=== PATIENT | female | born 1940 | race African-American/Black ===

== ENCOUNTER 2016-06-03 11:48 | Inpatient (IN) | payer MEDICARE, OTHER ==
[~2016-06-03] VITALS: Ht 162.6 cm; Wt 118.6 kg
[~2016-06-03 11:48] MED LIST: ACET-706 PO; ATOR40TA59 PO; DIPH25CA58 PO; DIPH50CA PO; DOCU-27 PO; FLUT1DIS5 IH; FURO-68 PO; FURO40TA4 PO; KETO5DRO24 LEFTEYE; PANT40TA5 PO; PENT1TAB PO; PENT30AM PO; PROAIR HFA8.5 GM INH; PROM118S2 PO; TALWIN NX PO; TOBR5DRO13 OS; VALIUM10 MG PO; VENTOLIN HFA18 GM IH
[2016-06-03] MEDS ORDERED: METHYL SALICYLATE/MENTHOL TOPICAL OINTMENT 29GM TUBE. TP PRN (15:45)
[2016-06-03] MEDS ORDERED: OXYCODONE/APAP 10/325 TABLET. PO PRN (15:45)
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
[2016-06-03] MEDS ORDERED: FENTANYL PF 100 MCG/2 ML VIAL. IV PRN ×2 (16:00)
--- NOTE | 2016-06-03 17:15 | RAD ---
Lumbar spine, 3 views, 06/03/2016: History: Fall, low back pain The lumbar vertebral heights and disc spaces are well maintained. There are moderate scattered marginal spurs. There are moderate degenerative changes involving the facet joints bilaterally in the lower lumbar spine. No fracture or dislocation is identified. Aortic calcific plaquing is present. IMPRESSION: 1. Moderate hypertrophic degenerative change. 2. No acute bony abnormality is detected.
--- NOTE | 2016-06-03 17:17 | RAD ---
Thoracic spine, 3 views, 06/03/2016: History: Fall, pain The thoracic vertebral heights are well-maintained. There are moderate scattered marginal spurs. No fracture or dislocation is identified. IMPRESSION: 1. Moderate marginal spurring. 2. No acute thoracic spine abnormality is detected.
--- NOTE | 2016-06-03 17:19 | RAD ---
Cervical spine, 5 views, 06/03/2016: History: Fall, pain No fracture or dislocation is identified. There is moderate marginal spurring in the mid and lower cervical spine. There is mild disc space narrowing at C6-7. There are moderate degenerative changes involving scattered facet joints bilaterally. No prevertebral soft tissue swelling is seen. IMPRESSION: 1. Mild to moderate multilevel degenerative change. 2. No acute cervical spine abnormality is detected.
--- NOTE | 2016-06-03 17:22 | RAD ---
Bilateral shoulders, 6 views, 06/03/2016: History: Fall, pain No fracture or dislocation is identified. There is moderate degenerative change at both glenohumeral and acromioclavicular articulations. IMPRESSION: 1. Moderate degenerative change at both shoulders. 2. No acute bony abnormality is detected.
[2016-06-03 18:53] LABS: BASO # 0.1 x10^3/uL (0.0-0.2); BASO % 1 % (0-3); EOS % 2 % (0-3); HEMATOCRIT 48.6 % (36.0-47.0); HEMOGLOBIN 15.6 g/dL (12.0-15.5); LYMPH # 1.7 x10^3/uL (1.0-4.8); LYMPH % 32 % (24-48); MEAN CORPUSCULAR HEMOGLOBIN 28 pg (25-35); MEAN CORPUSCULAR HGB CONC 32 g/dL (31-37); MEAN CORPUSCULAR VOLUME 88 fL (79-100); MONO % 9 % (0-9); NEUT % 57 % (31-73); PLATELET COUNT 154 x10^3/uL (140-400); RED BLOOD COUNT 5.53 x10^6/uL (3.50-5.40); RED CELL DISTRIBUTION WIDTH 14.7 % (11.5-14.5); WHITE BLOOD COUNT 5.3 x10^3/uL (4.0-11.0)
[2016-06-03 19:00] VITALS: BP 134/59
[2016-06-03 19:09] LABS: ALBUMIN 3.3 g/dL (3.4-5.0); ALBUMIN/GLOBULIN RATIO 0.8 (1.0-1.7); CALCIUM 9.3 mg/dL (8.5-10.1); CREATININE 0.8 mg/dL (0.6-1.0); GFR 84.2; TOTAL BILIRUBIN 0.6 mg/dL (0.2-1.0); TOTAL PROTEIN 7.3 g/dL (6.4-8.2)
[2016-06-03] MEDS: METHOCARBAMOL 750 MG TABLET PO PRN (20:51)
[2016-06-03] MEDS: FENTANYL PF 100 MCG/2 ML VIAL. IV PRN (20:51)
[2016-06-03 23:00] VITALS: BP 121/69
[2016-06-04] MEDS: FENTANYL PF 100 MCG/2 ML VIAL. IV PRN ×5 (01:36→21:54)
[2016-06-04] MEDS: DIPHENHYDRAMINE HCL 25 MG CAPSULE PO PRN ×2 (01:37→13:43)
[2016-06-04 03:00] VITALS: BP 123/62
[2016-06-04 07:00] VITALS: BP 142/58
[2016-06-04] MEDS: FUROSEMIDE 40 MG TABLET PO SCH (09:13)
[2016-06-04] MEDS ORDERED: DIPHENHYDRAMINE HCL 25 MG CAPSULE PO PRN (10:15)
[2016-06-04] MEDS ORDERED: NON FORMULARY ITEM (Fluticasone/Salmeterol (Advair 500-50 Diskus) 1 PUFF) IH PRN (10:15)
--- NOTE | 2016-06-04 10:20 | PDOC ---
Provider Note Provider Note medical consult dictated. #[id number] JIM CASTRO MD Jun 04, 2016 10:20
[2016-06-04] MEDS ORDERED: DIAZEPAM 5 MG TABLET PO PRN (10:30)
[2016-06-04] MEDS ORDERED: ALBUTEROL SULFATE 2.5 MG/3 ML NEBU. NEB PRN (10:30)
[2016-06-04] MEDS ORDERED: ONDANSETRON PF 4 MG/2 ML VIAL. IV PRN (10:45)
[2016-06-04 10:52] VITALS: BP 155/69
[2016-06-04] MEDS ORDERED: ENOXAPARIN 40 MG/0.4 ML DISP.SYRIN. SQ SCH (12:00)
[2016-06-04] MEDS: ALBUTEROL SULFATE 2.5 MG/3 ML NEBU. NEB SCH ×3 (12:30→20:21)
[2016-06-04] MEDS: METHOCARBAMOL 750 MG TABLET PO PRN (13:34)
[2016-06-04] MEDS: PANTOPRAZOLE 40 MG TABLET. PO SCH (13:34)
[2016-06-04] MEDS: ENOXAPARIN 40 MG/0.4 ML DISP.SYRIN. SQ SCH (13:34)
[2016-06-04] MEDS: DOCUSATE SODIUM 100 MG CAPSULE PO SCH ×2 (13:34→21:54)
[2016-06-04] MEDS: KETOROLAC TROMETHAMINE 0.5% OPHTH SOLUTION 3ML BOTTLE. OS SCH ×2 (14:00→21:00)
[2016-06-04 15:00] VITALS: BP 147/71
--- NOTE | 2016-06-04 18:02 | PDOC ---
PROGRESS NOTES Subjective Subjective She continues with generalized pain. Objective Objective Vital Signs Date Time Temp Pulse Resp B/P Pulse Ox O2 Delivery O2 Flow Rate FiO2 06/04/16 17:16 Room Air 06/04/16 15:00 97.0 73 20 147/71 95 97.0 Intake and Output 06/04/16 07:00 Intake Total 200 ml Balance 200 ml Intake Oral 200 ml # Voids 2 Physical Exam Physical Exam She is alert sitting up in chair.She is working with physical and occupational therapy who recommends SNF transfer. Plan Plan of Care To transfer to SNF when arrangements are completed. Comment Review of Relevant I have reviewed the following items vinod (where applicable) has been applied. Labs Laboratory Tests Test 06/03/16 18:40 White Blood Count 5.3x10^3/uL (4.0-11.0) Red Blood Count 5.53x10^6/uL (3.50-5.40) Hemoglobin 15.6g/dL (12.0-15.5) Hematocrit 48.6% (36.0-47.0) Mean Corpuscular Volume 88fL (79-100) Mean Corpuscular Hemoglobin 28pg (25-35) Mean Corpuscular Hemoglobin Concent 32g/dL (31-37) Red Cell Distribution Width 14.7% (11.5-14.5) Platelet Count 154x10^3/uL (140-400) Neutrophils (%) (Auto) 57% (31-73) Lymphocytes (%) (Auto) 32% (24-48) Monocytes (%) (Auto) 9% (0-9) Eosinophils (%) (Auto) 2% (0-3) Basophils (%) (Auto) 1% (0-3) Neutrophils # (Auto) 3.0x10^3uL (1.8-7.7) Lymphocytes # (Auto) 1.7x10^3/uL (1.0-4.8) Monocytes # (Auto) 0.5x10^3/uL (0.0-1.1) Eosinophils # (Auto) 0.1x10^3/uL (0.0-0.7) Basophils # (Auto) 0.1x10^3/uL (0.0-0.2) Sodium Level 143mmol/L (136-145) Potassium Level 4.0mmol/L (3.5-5.1) Chloride Level 104mmol/L (98-107) Carbon Dioxide Level 32mmol/L (21-32) Anion Gap 7 (6-14) Blood Urea Nitrogen 11mg/dL (7-20) Creatinine 0.8mg/dL (0.6-1.0) Estimated GFR (Cockcroft-Gault) 84.2 BUN/Creatinine Ratio 14 (6-20) Glucose Level 151mg/dL (70-99) Calcium Level 9.3mg/dL (8.5-10.1) Total Bilirubin 0.6mg/dL (0.2-1.0) Aspartate Amino Transf (AST/SGOT) 24U/L (15-37) Alanine Aminotransferase (ALT/SGPT) 18U/L (14-59) Alkaline Phosphatase 167U/L (46-116) Total Protein 7.3g/dL (6.4-8.2) Albumin 3.3g/dL (3.4-5.0) Albumin/Globulin Ratio 0.8 (1.0-1.7) Laboratory Tests Test 06/03/16 18:40 White Blood Count 5.3x10^3/uL (4.0-11.0) Red Blood Count 5.53x10^6/uL (3.50-5.40) Hemoglobin 15.6g/dL (12.0-15.5) Hematocrit 48.6% (36.0-47.0) Mean Corpuscular Volume 88fL (79-100) Mean Corpuscular Hemoglobin 28pg (25-35) Mean Corpuscular Hemoglobin Concent 32g/dL (31-37) Red Cell Distribution Width 14.7% (11.5-14.5) Platelet Count 154x10^3/uL (140-400) Neutrophils (%) (Auto) 57% (31-73) Lymphocytes (%) (Auto) 32% (24-48) Monocytes (%) (Auto) 9% (0-9) Eosinophils (%) (Auto) 2% (0-3) Basophils (%) (Auto) 1% (0-3) Neutrophils # (Auto) 3.0x10^3uL (1.8-7.7) Lymphocytes # (Auto) 1.7x10^3/uL (1.0-4.8) Monocytes # (Auto) 0.5x10^3/uL (0.0-1.1) Eosinophils # (Auto) 0.1x10^3/uL (0.0-0.7) Basophils # (Auto) 0.1x10^3/uL (0.0-0.2) Sodium Level 143mmol/L (136-145) Potassium Level 4.0mmol/L (3.5-5.1) Chloride Level 104mmol/L (98-107) Carbon Dioxide Level 32mmol/L (21-32) Anion Gap 7 (6-14) Blood Urea Nitrogen 11mg/dL (7-20) Creatinine 0.8mg/dL (0.6-1.0) Estimated GFR (Cockcroft-Gault) 84.2 BUN/Creatinine Ratio 14 (6-20) Glucose Level 151mg/dL (70-99) Calcium Level 9.3mg/dL (8.5-10.1) Total Bilirubin 0.6mg/dL (0.2-1.0) Aspartate Amino Transf (AST/SGOT) 24U/L (15-37) Alanine Aminotransferase (ALT/SGPT) 18U/L (14-59) Alkaline Phosphatase 167U/L (46-116) Total Protein 7.3g/dL (6.4-8.2) Albumin 3.3g/dL (3.4-5.0) Albumin/Globulin Ratio 0.8 (1.0-1.7) Medications Current Medications Fentanyl Citrate (Fentanyl 2ml Vial) 100 mcg PRN 1X PRN IV BACK PAIN; Start at 16:00; Stop 06/03/16 at 16:00; Status DC Methocarbamol (Robaxin) 750 mg PRN Q6HRS PRN PO MUSCLE SPASMS Last administered on 06/04/16 13:34; Start 06/03/16 at 15:45 Oxycodone/ Acetaminophen (Percocet 10/325) 1 tab PRN Q4HRS PRN PO PAIN Last administered on 06/04/16 13:34; Start 06/03/16 at 15:45 Furosemide (Lasix) 40 mg DAILY PO Last administered on 06/04/16 09:13; Start 06/04/16 at 09:00 Diphenhydramine HCl (Benadryl) 50 mg PRN Q6HRS PRN PO ITCHING Last administered on 06/04/16 13:43; Start 06/03/16 at 15:45 Multi-Ingredient Ointment (Analgesic [place]) 1 mindi PRN QID PRN TP MUSCLE PAIN; Start 06/03/16 at 15:45 Fentanyl Citrate (Fentanyl 2ml Vial) 25 mcg PRN 1X PRN IV BACK PAIN Last administered on 06/03/16 17:49; Start 06/03/16 at 16:00; Stop 06/04/16 at 11:26 ; Status DC Fentanyl Citrate (Fentanyl 2ml Vial) 25 mcg PRN Q2HR PRN IV PAIN Last administered on 06/04/16 16:37; Start 06/03/16 at 20:45 Atorvastatin Calcium (Lipitor) 40 mg QHS PO ; Start 06/04/16 at 21:00 Diphenhydramine HCl (Benadryl) 25 mg PRN TID PRN PO IT; Start 06/04/16 at 10:15 Docusate Sodium (Colace) 100 mg BID PO Last administered on 06/04/16 13:34; Start 06/04/16 at 11:00 Ketorolac Tromethamine (Acular) 1 drop [id number] OS ; Start 06/04/16 at 14:00 Pantoprazole Sodium (Protonix) 40 mg DAILYAC PO Last administered on 06/04/16 13:34; Start 06/04/16 at 11:00 Albuterol Sulfate (Ventolin Neb Soln) 2.5 mg PRN Q4HRS PRN NEB SHORTNESS OF BREATH; Start 06/04/16 at 10:30 Diazepam (Valium) 5 mg PRN BID PRN PO ANXIETY / AGITATION; Start 06/04/16 at 10 :30 Non-Formulary Medication 1 puff BID PRN IH SHORTNESS OF BREATH; Start 06/04/16 at 10:15; Status UNV Albuterol Sulfate (Ventolin Neb Soln) 2.5 mg RTQID NEB Last administered on 16:51; Start 06/04/16 at 12:00 Budesonide (Pulmicort) 0.5 mg RTBID NEB ; Start 06/04/16 at 20:00 Ondansetron HCl (Zofran) 8 mg PRN Q8HRS PRN IV NAUSEA/VOMITING; Start 06/04/16 at 10:45 Enoxaparin Sodium (Lovenox 40mg Syringe) 40 mg Q12HR SQ ; Start 06/04/16 at 12: 00; Stop 06/04/16 at 12:00; Status DC Enoxaparin Sodium (Lovenox 40mg Syringe) 40 mg DAILY SQ Last administered on t 13:34; Start 06/04/16 at 12:00 Active Scripts Active Pantoprazole Sodium 40 Mg Tablet.dr 40 Mg PO DAILYAC Colace (Docusate Sodium) 100 Mg Capsule 100 Mg PO BID Atorvastatin Calcium 40 Mg Tablet 40 Mg PO QHS Reported Ketorolac Tromethamine 5 Ml Drops 1 Drop LEFTEYE [id number] Benadryl (Diphenhydramine Hcl) 25 Mg Capsule 2 Cap PO PRN 3-4XDAILY PRN Valium (Diazepam) 10 Mg Tablet 10 Mg PO PRN BID PRN Promethazine-Codeine Syrup (Promethazine Hcl/Codeine) 118 Ml Syrup 5 Ml PO Q4- 6HRS PRN Furosemide 40 Mg Tablet 1 Tab PO DAILY Talwin (Pentazocine Lactate) 30 Mg/1 Ml Ampul 50 Mg PO Q4HRS PRN Advair 500-50 Diskus (Fluticasone/Salmeterol) 1 Each Disk.w.dev 1 Puff IH BID PRN Ventolin Hfa Inhaler (Albuterol Sulfate) 18 Gm Hfa.aer.ad 2 Puff IH PRN Q4-6HRS Proair Hfa Inhaler (Albuterol Sulfate) 8.5 Gm Hfa.aer.ad 1 Puff INH PRN Q6HRS PRN Vitals/I & O Vital Sign - Last 24 Hours 06/03/16 06/03/16 06/03/16 06/03/16 18:47 19:00 19:02 23:00 Temp 97.7 97.8 97.7 97.8 Pulse 77 61 Resp 20 18 18 B/P 134/59 121/69 Pulse Ox 95 92 O2 Delivery Room Air Room Air Room Air Room Air 06/04/16 06/04/16 06/04/16 06/04/16 03:00 07:00 08:00 09:13 Temp 97.9 97.6 97.9 97.6 Pulse 73 75 Resp 18 18 B/P 123/62 142/58 Pulse Ox 91 96 O2 Delivery Room Air Room Air Room Air Room Air 06/04/16 06/04/16 06/04/16 06/04/16 10:52 12:30 13:34 15:00 Temp 97.1 97.0 97.1 97.0 Pulse 75 73 Resp 18 20 B/P 155/69 147/71 Pulse Ox 95 97 95 O2 Delivery Room Air Room Air Room Air Room Air 06/04/16 06/04/16 06/04/16 06/04/16 15:31 16:37 16:51 17:16 O2 Delivery Room Air Room Air Room Air Room Air Intake and Output 06/03/16 06/03/16 06/04/16 15:00 23:00 07:00 Intake Total 200 ml Balance 200 ml JARVIS ORTIZ MD Jun 04, 2016 18:02
[2016-06-04 19:15] VITALS: BP 100/56
[2016-06-04] MEDS: BUDESONIDE 0.5 MG/2 ML NEBU NEB SCH (20:21)
[2016-06-04] MEDS: ATORVASTATIN CALCIUM 40 MG TABLET. PO SCH (21:54)
[2016-06-04 23:10] VITALS: BP 133/57
[2016-06-05 03:45] VITALS: BP 116/61
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
[2016-06-05] MEDS: FENTANYL PF 100 MCG/2 ML VIAL. IV PRN ×3 (04:53→22:49)
[2016-06-05] MEDS: ALBUTEROL SULFATE 2.5 MG/3 ML NEBU. NEB SCH ×4 (07:24→19:49)
[2016-06-05] MEDS: BUDESONIDE 0.5 MG/2 ML NEBU NEB SCH ×2 (07:25→19:49)
[2016-06-05 08:10] VITALS: BP 138/62
[2016-06-05] MEDS: KETOROLAC TROMETHAMINE 0.5% OPHTH SOLUTION 3ML BOTTLE. OS SCH ×3 (08:35→21:00)
[2016-06-05] MEDS: PANTOPRAZOLE 40 MG TABLET. PO SCH (08:37)
[2016-06-05] MEDS: DOCUSATE SODIUM 100 MG CAPSULE PO SCH ×2 (08:37→22:48)
[2016-06-05] MEDS: FUROSEMIDE 40 MG TABLET PO SCH (08:38)
[2016-06-05] MEDS: ENOXAPARIN 40 MG/0.4 ML DISP.SYRIN. SQ SCH ×2 (08:38→22:50)
[2016-06-05 11:23] VITALS: BP 121/59
--- NOTE | 2016-06-05 11:41 | PDOC ---
PROGRESS NOTES Subjective Subjective She admits continued pain in her neck and back. Objective Objective Vital Signs Date Time Temp Pulse Resp B/P Pulse Ox O2 Delivery O2 Flow Rate FiO2 06/05/16 11:31 Room Air 06/05/16 11:23 97.7 87 16 121/59 98 2.0 97.7 Intake and Output 06/05/16 07:00 Intake Total 660 ml Balance 660 ml Intake Oral 660 ml # Voids 8 Physical Exam Physical Exam She is supine in bed and does not seem to be any any acute distress but continues to require help with her bed mobility and transfers. Plan Plan of Care To continue present physical and occupational therapy and to SNF if she agrees or home with home health follow up on 06/07/2016. Comment Review of Relevant I have reviewed the following items vinod (where applicable) has been applied. Labs Laboratory Tests Test 06/03/16 18:40 White Blood Count 5.3x10^3/uL (4.0-11.0) Red Blood Count 5.53x10^6/uL (3.50-5.40) Hemoglobin 15.6g/dL (12.0-15.5) Hematocrit 48.6% (36.0-47.0) Mean Corpuscular Volume 88fL (79-100) Mean Corpuscular Hemoglobin 28pg (25-35) Mean Corpuscular Hemoglobin Concent 32g/dL (31-37) Red Cell Distribution Width 14.7% (11.5-14.5) Platelet Count 154x10^3/uL (140-400) Neutrophils (%) (Auto) 57% (31-73) Lymphocytes (%) (Auto) 32% (24-48) Monocytes (%) (Auto) 9% (0-9) Eosinophils (%) (Auto) 2% (0-3) Basophils (%) (Auto) 1% (0-3) Neutrophils # (Auto) 3.0x10^3uL (1.8-7.7) Lymphocytes # (Auto) 1.7x10^3/uL (1.0-4.8) Monocytes # (Auto) 0.5x10^3/uL (0.0-1.1) Eosinophils # (Auto) 0.1x10^3/uL (0.0-0.7) Basophils # (Auto) 0.1x10^3/uL (0.0-0.2) Sodium Level 143mmol/L (136-145) Potassium Level 4.0mmol/L (3.5-5.1) Chloride Level 104mmol/L (98-107) Carbon Dioxide Level 32mmol/L (21-32) Anion Gap 7 (6-14) Blood Urea Nitrogen 11mg/dL (7-20) Creatinine 0.8mg/dL (0.6-1.0) Estimated GFR (Cockcroft-Gault) 84.2 BUN/Creatinine Ratio 14 (6-20) Glucose Level 151mg/dL (70-99) Calcium Level 9.3mg/dL (8.5-10.1) Total Bilirubin 0.6mg/dL (0.2-1.0) Aspartate Amino Transf (AST/SGOT) 24U/L (15-37) Alanine Aminotransferase (ALT/SGPT) 18U/L (14-59) Alkaline Phosphatase 167U/L (46-116) Total Protein 7.3g/dL (6.4-8.2) Albumin 3.3g/dL (3.4-5.0) Albumin/Globulin Ratio 0.8 (1.0-1.7) Medications Current Medications Fentanyl Citrate (Fentanyl 2ml Vial) 100 mcg PRN 1X PRN IV BACK PAIN; Start at 16:00; Stop 06/03/16 at 16:00; Status DC Methocarbamol (Robaxin) 750 mg PRN Q6HRS PRN PO MUSCLE SPASMS Last administered on 06/04/16 13:34; Start 06/03/16 at 15:45 Oxycodone/ Acetaminophen (Percocet 10/325) 1 tab PRN Q4HRS PRN PO PAIN Last administered on 06/04/16 13:34; Start 06/03/16 at 15:45 Furosemide (Lasix) 40 mg DAILY PO Last administered on 06/04/16 09:13; Start 06/04/16 at 09:00 Diphenhydramine HCl (Benadryl) 50 mg PRN Q6HRS PRN PO ITCHING Last administered on 06/04/16 13:43; Start 06/03/16 at 15:45 Multi-Ingredient Ointment (Analgesic [place]) 1 mindi PRN QID PRN TP MUSCLE PAIN; Start 06/03/16 at 15:45 Fentanyl Citrate (Fentanyl 2ml Vial) 25 mcg PRN 1X PRN IV BACK PAIN Last administered on 06/03/16 17:49; Start 06/03/16 at 16:00; Stop 06/04/16 at 11:26 ; Status DC Fentanyl Citrate (Fentanyl 2ml Vial) 25 mcg PRN Q2HR PRN IV PAIN Last administered on 06/05/16 08:39; Start 06/03/16 at 20:45 Atorvastatin Calcium (Lipitor) 40 mg QHS PO Last administered on 06/04/16 21: 54; Start 06/04/16 at 21:00 Diphenhydramine HCl (Benadryl) 25 mg PRN TID PRN PO IT; Start 06/04/16 at 10:15 Docusate Sodium (Colace) 100 mg BID PO Last administered on 06/05/16 08:37; Start 06/04/16 at 11:00 Ketorolac Tromethamine (Acular) 1 drop [id number] OS ; Start 06/04/16 at 14:00 Pantoprazole Sodium (Protonix) 40 mg DAILYAC PO Last administered on 06/05/16 08:37; Start 06/04/16 at 11:00 Albuterol Sulfate (Ventolin Neb Soln) 2.5 mg PRN Q4HRS PRN NEB SHORTNESS OF BREATH; Start 06/04/16 at 10:30 Diazepam (Valium) 5 mg PRN BID PRN PO ANXIETY / AGITATION; Start 06/04/16 at 10 :30 Non-Formulary Medication 1 puff BID PRN IH SHORTNESS OF BREATH; Start 06/04/16 at 10:15; Status UNV Albuterol Sulfate (Ventolin Neb Soln) 2.5 mg RTQID NEB Last administered on 11:30; Start 06/04/16 at 12:00 Budesonide (Pulmicort) 0.5 mg RTBID NEB Last administered on 06/05/16 07:25; Start 06/04/16 at 20:00 Ondansetron HCl (Zofran) 8 mg PRN Q8HRS PRN IV NAUSEA/VOMITING; Start 06/04/16 at 10:45 Enoxaparin Sodium (Lovenox 40mg Syringe) 40 mg Q12HR SQ ; Start 06/04/16 at 12: 00; Stop 06/04/16 at 12:00; Status DC Enoxaparin Sodium (Lovenox 40mg Syringe) 40 mg DAILY SQ Last administered on t 08:38; Start 06/04/16 at 12:00 Active Scripts Active Pantoprazole Sodium 40 Mg Tablet.dr 40 Mg PO DAILYAC Colace (Docusate Sodium) 100 Mg Capsule 100 Mg PO BID Atorvastatin Calcium 40 Mg Tablet 40 Mg PO QHS Reported Ketorolac Tromethamine 5 Ml Drops 1 Drop LEFTEYE [id number] Benadryl (Diphenhydramine Hcl) 25 Mg Capsule 2 Cap PO PRN 3-4XDAILY PRN Valium (Diazepam) 10 Mg Tablet 10 Mg PO PRN BID PRN Promethazine-Codeine Syrup (Promethazine Hcl/Codeine) 118 Ml Syrup 5 Ml PO Q4- 6HRS PRN Furosemide 40 Mg Tablet 1 Tab PO DAILY Talwin (Pentazocine Lactate) 30 Mg/1 Ml Ampul 50 Mg PO Q4HRS PRN Advair 500-50 Diskus (Fluticasone/Salmeterol) 1 Each Disk.w.dev 1 Puff IH BID PRN Ventolin Hfa Inhaler (Albuterol Sulfate) 18 Gm Hfa.aer.ad 2 Puff IH PRN Q4-6HRS Proair Hfa Inhaler (Albuterol Sulfate) 8.5 Gm Hfa.aer.ad 1 Puff INH PRN Q6HRS PRN Vitals/I & O Vital Sign - Last 24 Hours 06/04/16 06/04/16 06/04/16 06/04/16 12:30 13:34 15:00 15:31 Temp 97.0 97.0 Pulse 73 Resp 20 B/P 147/71 Pulse Ox 97 95 O2 Delivery Room Air Room Air Room Air Room Air 06/04/16 06/04/16 06/04/16 06/04/16 16:37 16:51 19:15 20:00 Temp 98.2 98.2 Pulse 81 Resp 18 B/P 100/56 Pulse Ox 91 O2 Delivery Room Air Room Air Room Air Room Air 2/24/17 2/24/17 2/24/17 2/25/17 20:24 21:54 23:10 03:45 Temp 97.6 98.2 97.6 98.2 Pulse 87 85 Resp 18 18 18 B/P 133/57 116/61 Pulse Ox 96 94 95 O2 Delivery Room Air Room Air Room Air Room Air 06/05/16 06/05/16 06/05/16 06/05/16 04:53 07:26 08:10 08:39 Temp 98.5 98.5 Pulse 85 Resp 18 20 B/P 138/62 Pulse Ox 100 100 O2 Delivery Room Air Nasal Cannula Room Air Nasal Cannula O2 Flow Rate 2.0 2.0 06/05/16 06/05/16 06/05/16 09:42 11:23 11:31 Temp 97.7 97.7 Pulse 87 Resp 16 B/P 121/59 Pulse Ox 98 O2 Delivery Nasal Cannula Nasal Cannula Room Air O2 Flow Rate 2.0 2.0 Intake and Output 06/04/16 06/04/16 06/05/16 15:00 23:00 07:00 Intake Total 180 ml 480 ml Balance 180 ml 480 ml JARVIS ORTIZ MD Jun 05, 2016 11:41
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
[2016-06-05] MEDS ORDERED: FUROSEMIDE 40 MG TABLET PO SCH (12:30)
[2016-06-05 14:30] VITALS: BP 116/68
[2016-06-05] MEDS: TRAMADOL 50 MG TABLET. PO PRN (14:33)
[2016-06-05] MEDS: MORPHINE ER 15 MG TABLET.ER PO SCH ×2 (14:34→22:49)
[2016-06-05] MEDS: POLYETHYLENE GLYCOL 3350 17 GM PACKET. PO SCH (14:34)
[2016-06-05] MEDS: SENNOSIDES/DOCUSATE 8.6/50MG TABLET. PO SCH ×2 (14:34→22:48)
[2016-06-05 19:00] VITALS: BP 142/70
[2016-06-05] MEDS: ATORVASTATIN CALCIUM 40 MG TABLET. PO SCH (22:48)
[2016-06-05 23:00] VITALS: BP 137/83
[2016-06-06] VITALS (7 sets, daily range): BP systolic 88–146; BP diastolic 63–79
[2016-06-06] MEDS: FENTANYL PF 100 MCG/2 ML VIAL. IV PRN ×2 (03:22→20:34)
[2016-06-06] MEDS: BUDESONIDE 0.5 MG/2 ML NEBU NEB SCH ×2 (07:05→18:00)
[2016-06-06] MEDS: ALBUTEROL SULFATE 2.5 MG/3 ML NEBU. NEB SCH ×4 (07:06→18:02)
[2016-06-06] MEDS: PANTOPRAZOLE 40 MG TABLET. PO SCH (08:55)
[2016-06-06] MEDS: MORPHINE ER 15 MG TABLET.ER PO SCH ×2 (08:55→21:00)
[2016-06-06] MEDS: DOCUSATE SODIUM 100 MG CAPSULE PO SCH ×2 (08:55→20:33)
[2016-06-06] MEDS: KETOROLAC TROMETHAMINE 0.5% OPHTH SOLUTION 3ML BOTTLE. OS SCH ×3 (08:56→21:00)
[2016-06-06] MEDS: POLYETHYLENE GLYCOL 3350 17 GM PACKET. PO SCH (08:56)
[2016-06-06] MEDS: FUROSEMIDE 40 MG TABLET PO SCH (08:56)
[2016-06-06] MEDS: SENNOSIDES/DOCUSATE 8.6/50MG TABLET. PO SCH ×2 (08:56→20:33)
[2016-06-06] MEDS: ENOXAPARIN 40 MG/0.4 ML DISP.SYRIN. SQ SCH ×2 (08:57→20:34)
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
[2016-06-06] MEDS: ATORVASTATIN CALCIUM 40 MG TABLET. PO SCH (20:33)
[2016-06-07] MEDS: DIPHENHYDRAMINE HCL 25 MG CAPSULE PO PRN (02:50)
[2016-06-07 03:00] VITALS: BP 145/71
[2016-06-07 07:00] VITALS: BP 124/62
[2016-06-07] MEDS: ALBUTEROL SULFATE 2.5 MG/3 ML NEBU. NEB SCH ×4 (07:17→20:08)
[2016-06-07] MEDS: BUDESONIDE 0.5 MG/2 ML NEBU NEB SCH ×2 (07:17→20:09)
[2016-06-07] MEDS: FUROSEMIDE 40 MG TABLET PO SCH (08:23)
[2016-06-07] MEDS: SENNOSIDES/DOCUSATE 8.6/50MG TABLET. PO SCH ×2 (08:23→21:46)
[2016-06-07] MEDS: POLYETHYLENE GLYCOL 3350 17 GM PACKET. PO SCH (08:23)
[2016-06-07] MEDS: PANTOPRAZOLE 40 MG TABLET. PO SCH (08:23)
[2016-06-07] MEDS: DOCUSATE SODIUM 100 MG CAPSULE PO SCH ×2 (08:23→21:46)
[2016-06-07] MEDS: TRAMADOL 50 MG TABLET. PO PRN (08:23)
[2016-06-07] MEDS: ENOXAPARIN 40 MG/0.4 ML DISP.SYRIN. SQ SCH ×2 (08:24→21:47)
[2016-06-07] MEDS: KETOROLAC TROMETHAMINE 0.5% OPHTH SOLUTION 3ML BOTTLE. OS SCH ×3 (08:25→21:56)
[2016-06-07] MEDS: MORPHINE ER 15 MG TABLET.ER PO SCH ×2 (08:27→21:46)
--- NOTE | 2016-06-07 09:49 | PDOC ---
PROGRESS NOTES Subjective Subjective She feels better with easing of soreness. Objective Objective Vital Signs Date Time Temp Pulse Resp B/P Pulse Ox O2 Delivery O2 Flow Rate FiO2 06/07/16 08:27 Nasal Cannula 2.0 06/07/16 07:17 98 06/07/16 07:00 98.0 94 14 124/62 98.0 Intake and Output 06/07/16 07:00 # Voids 11 Physical Exam Physical Exam She is sitting up in bedside recliner and seems to be in no acute distress and she is using oxygen by nasal canula.She continues to require help with transfers. Plan Plan of Care She would like to go home tomorrow when her personal care attendent returns to [facility] rather than going to SNF. Comment Review of Relevant I have reviewed the following items vinod (where applicable) has been applied. Medications Current Medications Fentanyl Citrate (Fentanyl 2ml Vial) 100 mcg PRN 1X PRN IV BACK PAIN; Start at 16:00; Stop 06/03/16 at 16:00; Status DC Methocarbamol (Robaxin) 750 mg PRN Q6HRS PRN PO MUSCLE SPASMS Last administered on 06/04/16 13:34; Start 06/03/16 at 15:45 Oxycodone/ Acetaminophen (Percocet 10/325) 1 tab PRN Q4HRS PRN PO PAIN Last administered on 06/04/16 13:34; Start 06/03/16 at 15:45 Furosemide (Lasix) 40 mg DAILY PO Last administered on 06/07/16 08:23; Start 06/04/16 at 09:00 Diphenhydramine HCl (Benadryl) 50 mg PRN Q6HRS PRN PO ITCHING Last administered on 06/07/16 02:50; Start 06/03/16 at 15:45 Multi-Ingredient Ointment (Analgesic [place]) 1 mindi PRN QID PRN TP MUSCLE PAIN; Start 06/03/16 at 15:45 Fentanyl Citrate (Fentanyl 2ml Vial) 25 mcg PRN 1X PRN IV BACK PAIN Last administered on 06/03/16 17:49; Start 06/03/16 at 16:00; Stop 06/04/16 at 11:26 ; Status DC Fentanyl Citrate (Fentanyl 2ml Vial) 25 mcg PRN Q2HR PRN IV PAIN Last administered on 06/06/16 20:34; Start 06/03/16 at 20:45 Atorvastatin Calcium (Lipitor) 40 mg QHS PO Last administered on 06/06/16 20: 33; Start 06/04/16 at 21:00 Diphenhydramine HCl (Benadryl) 25 mg PRN TID PRN PO IT; Start 06/04/16 at 10:15 Docusate Sodium (Colace) 100 mg BID PO Last administered on 06/07/16 08:23; Start 06/04/16 at 11:00 Ketorolac Tromethamine (Acular) 1 drop [id number] OS Last administered on 21:00; Start 06/04/16 at 14:00 Pantoprazole Sodium (Protonix) 40 mg DAILYAC PO Last administered on 06/07/16 08:23; Start 06/04/16 at 11:00 Albuterol Sulfate (Ventolin Neb Soln) 2.5 mg PRN Q4HRS PRN NEB SHORTNESS OF BREATH; Start 06/04/16 at 10:30 Diazepam (Valium) 5 mg PRN BID PRN PO ANXIETY / AGITATION Last administered on 06/07/16 02:50; Start 06/04/16 at 10:30 Non-Formulary Medication 1 puff BID PRN IH SHORTNESS OF BREATH; Start 06/04/16 at 10:15; Status UNV Albuterol Sulfate (Ventolin Neb Soln) 2.5 mg RTQID NEB Last administered on 07:17; Start 06/04/16 at 12:00 Budesonide (Pulmicort) 0.5 mg RTBID NEB Last administered on 06/07/16 07:17; Start 06/04/16 at 20:00 Ondansetron HCl (Zofran) 8 mg PRN Q8HRS PRN IV NAUSEA/VOMITING; Start 06/04/16 at 10:45 Enoxaparin Sodium (Lovenox 40mg Syringe) 40 mg Q12HR SQ ; Start 06/04/16 at 12: 00; Stop 06/04/16 at 12:00; Status DC Enoxaparin Sodium (Lovenox 40mg Syringe) 40 mg DAILY SQ Last administered on 08:38; Start 06/04/16 at 12:00; Stop 06/05/16 at 16:26; Status DC Furosemide (Lasix) 40 mg DAILY PO ; Start 06/05/16 at 12:30; Stop 06/05/16 at 12 :30; Status DC Polyethylene Glycol (miraLAX PACKET) 17 gm DAILY PO Last administered on 08:23; Start 06/05/16 at 13:00 Senna/Docusate Sodium (Senna Plus) 1 tab BID PO Last administered on 06/07/16 08:23; Start 06/05/16 at 13:00 Morphine Sulfate (Ms Contin) 15 mg BID PO Last administered on 06/07/16 08:27 ; Start 06/05/16 at 13:00 Tramadol HCl (Ultram) 100 mg PRN Q6HRS PRN PO PAIN Last administered on 08:23; Start 06/05/16 at 12:00 Enoxaparin Sodium (Lovenox 40mg Syringe) 40 mg Q12HR SQ Last administered on 08:24; Start 06/05/16 at 21:00 Active Scripts Active Pantoprazole Sodium 40 Mg Tablet.dr 40 Mg PO DAILYAC Colace (Docusate Sodium) 100 Mg Capsule 100 Mg PO BID Atorvastatin Calcium 40 Mg Tablet 40 Mg PO QHS Reported Ketorolac Tromethamine 5 Ml Drops 1 Drop LEFTEYE [id number] Benadryl (Diphenhydramine Hcl) 25 Mg Capsule 2 Cap PO PRN 3-4XDAILY PRN Valium (Diazepam) 10 Mg Tablet 10 Mg PO PRN BID PRN Promethazine-Codeine Syrup (Promethazine Hcl/Codeine) 118 Ml Syrup 5 Ml PO Q4- 6HRS PRN Furosemide 40 Mg Tablet 1 Tab PO DAILY Talwin (Pentazocine Lactate) 30 Mg/1 Ml Ampul 50 Mg PO Q4HRS PRN Advair 500-50 Diskus (Fluticasone/Salmeterol) 1 Each Disk.w.dev 1 Puff IH BID PRN Ventolin Hfa Inhaler (Albuterol Sulfate) 18 Gm Hfa.aer.ad 2 Puff IH PRN Q4-6HRS Proair Hfa Inhaler (Albuterol Sulfate) 8.5 Gm Hfa.aer.ad 1 Puff INH PRN Q6HRS PRN Vitals/I & O Vital Sign - Last 24 Hours 06/06/16 06/06/16 06/06/16 06/06/16 11:00 11:04 13:56 15:00 Temp 98.0 98.2 98.0 98.2 Pulse 87 96 Resp 16 16 B/P 139/63 131/77 Pulse Ox 96 98 96 O2 Delivery Nasal Cannula Nasal Cannula Nasal Cannula Nasal Cannula O2 Flow Rate 2.0 2.0 2.0 2.0 06/06/16 06/06/16 06/06/16 06/06/16 15:09 18:02 19:00 20:00 Temp 98.7 98.7 Pulse 114 Resp 18 B/P 88/64 Pulse Ox 86 98 O2 Delivery Nasal Cannula Nasal Cannula Nasal Cannula Nasal Cannula O2 Flow Rate 2.0 2.0 2.0 2.0 06/06/16 06/06/16 06/06/16 06/06/16 20:00 20:34 21:04 23:00 Temp 99.0 99.0 Pulse 100 Resp 20 20 18 B/P 140/75 133/67 Pulse Ox 86 97 O2 Delivery Nasal Cannula Nasal Cannula Nasal Cannula O2 Flow Rate 2.0 2.0 06/07/16 06/07/16 06/07/16 06/07/16 03:00 07:00 07:17 08:23 Temp 98.4 98.0 98.4 98.0 Pulse 107 94 Resp 18 14 B/P 145/71 124/62 Pulse Ox 94 94 98 O2 Delivery Nasal Cannula Nasal Cannula Nasal Cannula Nasal Cannula O2 Flow Rate 2.0 2.0 2.0 2.0 06/07/16 08:27 O2 Delivery Nasal Cannula O2 Flow Rate 2.0 JARVIS ORTIZ MD Jun 07, 2016 09:49
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
[2016-06-07 11:00] VITALS: BP 121/67
[2016-06-07] MEDS: METHOCARBAMOL 750 MG TABLET PO PRN (12:07)
--- NOTE | 2016-06-07 12:18 | PDOC ---
Provider Note Provider Note dictated RUSLAN JASSO MD Jun 07, 2016 12:18
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
[2016-06-07 15:00] VITALS: BP 154/60
--- NOTE | 2016-06-07 15:08 | RAD ---
CT of the chest without contrast, 06/07/2016: History: Follow-up sarcoidosis Noncontrast scans were obtained as requested and compared to a study from 05/01/2014. The images are partially compromised by motion and streak artifacts related to the patient's size. There is calcific plaquing of the aorta without evidence of aneurysm. The heart is within normal limits in size. There are calcified mediastinal and hilar lymph nodes. No noncalcified adenopathy is seen. There are streaky and groundglass opacities in both lungs similar to those seen on the previous study. This results in mosaic attenuation. The stability of these findings suggests scarring. No new pulmonary consolidation or mass is seen. There is no evidence of pleural fluid. Moderate multilevel degenerative change is present in the spine. IMPRESSION: 1. Moderate linear and groundglass opacities in both lungs appear stable, compatible with fibrosis. 2. No new chest abnormality is detected. PQRS Compliance Statement: One or more of the following individualized dose reduction techniques were utilized for this examination: 1. Automated exposure control 2. Adjustment of the mA and/or kV according to patient size 3. Use of iterative reconstruction technique
--- NOTE | 2016-06-07 15:21 | RAD ---
Portable chest, 06/07/2016: History: Sleep apnea, sarcoidosis Comparison is made to a study from 10/17/2015. The heart is at the upper limits of normal in size. There is calcific plaquing of the aorta. There are mild scattered parenchymal scars. No acute infiltrate is seen. There is no evidence of pleural fluid. Moderate spurring is present in the spine. IMPRESSION: 1. Mild parenchymal scarring. 2. No acute abnormality is detected with no significant change since 10/17/2015.
[2016-06-07 19:25] VITALS: BP 157/76
[2016-06-07] MEDS: ATORVASTATIN CALCIUM 40 MG TABLET. PO SCH (21:46)
[2016-06-07 23:25] VITALS: BP 136/68
[2016-06-08 03:25] VITALS: BP 134/64
[2016-06-08 07:00] VITALS: BP 124/61
[2016-06-08] MEDS: PANTOPRAZOLE 40 MG TABLET. PO SCH (07:52)
[2016-06-08] MEDS: ALBUTEROL SULFATE 2.5 MG/3 ML NEBU. NEB SCH ×4 (08:04→18:46)
[2016-06-08] MEDS: BUDESONIDE 0.5 MG/2 ML NEBU NEB SCH ×2 (08:04→18:46)
[2016-06-08] MEDS: SENNOSIDES/DOCUSATE 8.6/50MG TABLET. PO SCH ×2 (09:15→20:26)
[2016-06-08] MEDS: DOCUSATE SODIUM 100 MG CAPSULE PO SCH ×2 (09:15→20:26)
[2016-06-08] MEDS: FUROSEMIDE 40 MG TABLET PO SCH (09:15)
[2016-06-08] MEDS: POLYETHYLENE GLYCOL 3350 17 GM PACKET. PO SCH (09:16)
[2016-06-08] MEDS: MORPHINE ER 15 MG TABLET.ER PO SCH (09:16)
[2016-06-08] MEDS: ENOXAPARIN 40 MG/0.4 ML DISP.SYRIN. SQ SCH ×2 (09:20→20:27)
--- NOTE | 2016-06-08 09:54 | PDOC ---
PULMONARY PROGRESS NOTES Vitals Vital Signs Date Time Temp Pulse Resp B/P Pulse Ox O2 Delivery O2 Flow Rate FiO2 06/08/16 09:16 Nasal Cannula 06/08/16 08:04 98 2.0 06/08/16 07:00 97.6 90 16 124/61 97.6 General: Alert, Oriented X4, No acute distress Lungs: Clear, Other Cardiovascular: S1 Abdomen: Soft, Other Extremities: Other Medications Active Scripts Medications Dose Route/Sig Days Date Category Pantoprazole Sodium 40 Mg Tablet.dr 40 Mg PO DAILYAC 10/19/15 Rx Colace (Docusate Sodium) 100 Mg Capsule 100 Mg PO BID 10/19/15 Rx Atorvastatin Calcium 40 Mg Tablet 40 Mg PO QHS 10/19/15 Rx Ketorolac Tromethamine 5 Ml Drops 1 Drop LEFTEYE [id number] 10/18/15 Reported Benadryl (Diphenhydramine Hcl) 25 Mg Capsule 2 Cap PO PRN 3-4XDAILY PRN 10/17/15 Reported Valium (Diazepam) 10 Mg Tablet 10 Mg PO PRN BID PRN 10/17/15 Reported Promethazine-Codeine Syrup (Promethazine Hcl/Codeine) 118 Ml Syrup 5 Ml PO Q4-6HRS PRN 06/16/15 Reported Furosemide 40 Mg Tablet 1 Tab PO DAILY 06/16/15 Reported Talwin (Pentazocine Lactate) 30 Mg/1 Ml Ampul 50 Mg PO Q4HRS PRN 06/16/15 Reported Advair 500-50 Diskus (Fluticasone/Salmeterol) 1 Each Disk.w.dev 1 Puff IH BID PRN 04/25/14 Reported Ventolin Hfa Inhaler (Albuterol Sulfate) 18 Gm Hfa.aer.ad 2 Puff IH PRN Q4-6HRS 04/25/14 Reported Proair Hfa Inhaler (Albuterol Sulfate) 8.5 Gm Hfa.aer.ad 1 Puff INH PRN Q6HRS PRN 04/24/14 Reported MARY CLARK MD Jun 08, 2016 09:54
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
[2016-06-08 11:00] VITALS: BP 134/77
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
[2016-06-08 15:00] VITALS: BP 129/73
[2016-06-08 19:00] VITALS: BP 118/56
[2016-06-08] MEDS: ATORVASTATIN CALCIUM 40 MG TABLET. PO SCH (20:26)
[2016-06-08] MEDS: METHOCARBAMOL 750 MG TABLET PO PRN (20:35)
[2016-06-08] MEDS ORDERED: FENTANYL PF 100 MCG/2 ML VIAL. IM ONE (22:45)
[2016-06-08 23:00] VITALS: BP 126/63
[2016-06-09] MEDS: METHOCARBAMOL 750 MG TABLET PO PRN (02:34)
[2016-06-09 03:00] VITALS: BP 123/69
[2016-06-09 07:00] VITALS: BP 150/62
[2016-06-09] MEDS: BUDESONIDE 0.5 MG/2 ML NEBU NEB SCH (07:04)
[2016-06-09] MEDS: ALBUTEROL SULFATE 2.5 MG/3 ML NEBU. NEB SCH ×3 (07:04→14:51)
[2016-06-09] MEDS: PANTOPRAZOLE 40 MG TABLET. PO SCH (07:39)
[2016-06-09] MEDS: SENNOSIDES/DOCUSATE 8.6/50MG TABLET. PO SCH (08:33)
[2016-06-09] MEDS: FUROSEMIDE 40 MG TABLET PO SCH (08:34)
[2016-06-09] MEDS: POLYETHYLENE GLYCOL 3350 17 GM PACKET. PO SCH (08:34)
[2016-06-09] MEDS: DOCUSATE SODIUM 100 MG CAPSULE PO SCH (08:34)
[2016-06-09] MEDS: ENOXAPARIN 40 MG/0.4 ML DISP.SYRIN. SQ SCH (08:38)
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
--- NOTE | 2016-06-09 10:02 | PDOC ---
PULMONARY PROGRESS NOTES Subjective PT NOT MORE SOA Vitals Vital Signs Date Time Temp Pulse Resp B/P Pulse Ox O2 Delivery O2 Flow Rate FiO2 06/09/16 07:05 98 Nasal Cannula 2.0 06/09/16 07:00 97.9 83 16 150/62 97.9 General: Alert, No acute distress Lungs: Wheezing (UPPER AIRWAY NOISE), Other Cardiovascular: S1 Abdomen: Soft, Other Neuro Exam: Alert Extremities: No Edema Skin: Warm Medications Active Scripts Medications Dose Route/Sig Days Date Category Pantoprazole Sodium 40 Mg Tablet.dr 40 Mg PO DAILYAC 10/19/15 Rx Colace (Docusate Sodium) 100 Mg Capsule 100 Mg PO BID 10/19/15 Rx Atorvastatin Calcium 40 Mg Tablet 40 Mg PO QHS 10/19/15 Rx Ketorolac Tromethamine 5 Ml Drops 1 Drop LEFTEYE [id number] 10/18/15 Reported Benadryl (Diphenhydramine Hcl) 25 Mg Capsule 2 Cap PO PRN 3-4XDAILY PRN 10/17/15 Reported Valium (Diazepam) 10 Mg Tablet 10 Mg PO PRN BID PRN 10/17/15 Reported Promethazine-Codeine Syrup (Promethazine Hcl/Codeine) 118 Ml Syrup 5 Ml PO Q4-6HRS PRN 06/16/15 Reported Furosemide 40 Mg Tablet 1 Tab PO DAILY 06/16/15 Reported Talwin (Pentazocine Lactate) 30 Mg/1 Ml Ampul 50 Mg PO Q4HRS PRN 06/16/15 Reported Advair 500-50 Diskus (Fluticasone/Salmeterol) 1 Each Disk.w.dev 1 Puff IH BID PRN 04/25/14 Reported Ventolin Hfa Inhaler (Albuterol Sulfate) 18 Gm Hfa.aer.ad 2 Puff IH PRN Q4-6HRS 04/25/14 Reported Proair Hfa Inhaler (Albuterol Sulfate) 8.5 Gm Hfa.aer.ad 1 Puff INH PRN Q6HRS PRN 04/24/14 Reported Impression . 1. History of sarcoidosis diagnosed 28 years ago by skin biopsy from her nose and questionable bronchial biopsy. 2. Underlying morbid obesity. 3. Possible mild reactive airway disease. 4. Suspect vocal cord dysfunction CT CHEST 1. Moderate linear and groundglass opacities in both lungs appear stable, compatible with fibrosis. 2. No new chest abnormality is detected. Plan . ok to transfer no further work up 1. CT no new findings see report 2. Continue present oxygen. 3. Continue with present bronchodilators. MARY CLARK MD Jun 09, 2016 10:02
--- NOTE | 2016-06-09 10:03 | PDOC ---
PROGRESS NOTES Subjective Subjective She admits continued pain and constipation. Objective Objective Vital Signs Date Time Temp Pulse Resp B/P Pulse Ox O2 Delivery O2 Flow Rate FiO2 06/09/16 07:05 98 Nasal Cannula 2.0 06/09/16 07:00 97.9 83 16 150/62 97.9 Intake and Output 06/09/16 07:00 Intake Total 1595 ml Balance 1595 ml Intake Oral 1595 ml # Voids 10 Physical Exam Physical Exam She is alert,sitting in bedside chair and does not seem to be in any acute distress and continues with mobility and self care limitations. Assessment Assessment Problems Medical Problems: (1) Multiple falls Status: Acute (2) Sarcoidosis Status: Acute Plan Plan of Care Waiting for SNF transfer.To work on constipation. Comment Review of Relevant I have reviewed the following items vinod (where applicable) has been applied. Medications Current Medications Fentanyl Citrate (Fentanyl 2ml Vial) 100 mcg PRN 1X PRN IV BACK PAIN; Start at 16:00; Stop 06/03/16 at 16:00; Status DC Methocarbamol (Robaxin) 750 mg PRN Q6HRS PRN PO MUSCLE SPASMS Last administered on 06/09/16 02:34; Start 06/03/16 at 15:45 Oxycodone/ Acetaminophen (Percocet 10/325) 1 tab PRN Q4HRS PRN PO BREAKTHROUGH PAIN Last administered on 06/04/16 13:34; Start 06/03/16 at 15:45 Furosemide (Lasix) 40 mg DAILY PO Last administered on 06/09/16 08:34; Start at 09:00 Diphenhydramine HCl (Benadryl) 50 mg PRN Q6HRS PRN PO ITCHING Last administered on 06/07/16 02:50; Start 06/03/16 at 15:45; Stop 06/07/16 at 10:04 ; Status DC Multi-Ingredient Ointment (Analgesic [place]) 1 mindi PRN QID PRN TP MUSCLE PAIN; Start 06/03/16 at 15:45 Fentanyl Citrate (Fentanyl 2ml Vial) 25 mcg PRN 1X PRN IV BACK PAIN Last administered on 06/03/16 17:49; Start 06/03/16 at 16:00; Stop 06/04/16 at 11:26 ; Status DC Fentanyl Citrate (Fentanyl 2ml Vial) 25 mcg PRN Q2HR PRN IV PAIN Last administered on 06/06/16 20:34; Start 06/03/16 at 20:45; Stop 06/07/16 at 10:04 ; Status DC Atorvastatin Calcium (Lipitor) 40 mg QHS PO Last administered on 06/08/16 20: 26; Start 06/04/16 at 21:00 Diphenhydramine HCl (Benadryl) 25 mg PRN TID PRN PO IT Last administered on 06/09 02:34; Start 06/04/16 at 10:15 Docusate Sodium (Colace) 100 mg BID PO Last administered on 06/09/16 08:34; Start 06/04/16 at 11:00 Ketorolac Tromethamine (Acular) 1 drop [id number] OS Last administered on 21:00; Start 06/04/16 at 14:00; Stop 06/08/16 at 00:48; Status DC Pantoprazole Sodium (Protonix) 40 mg DAILYAC PO Last administered on 06/09/16 07:39; Start 06/04/16 at 11:00 Albuterol Sulfate (Ventolin Neb Soln) 2.5 mg PRN Q4HRS PRN NEB SHORTNESS OF BREATH; Start 06/04/16 at 10:30 Diazepam (Valium) 5 mg PRN BID PRN PO ANXIETY / AGITATION Last administered on 06/07/16 02:50; Start 06/04/16 at 10:30 Non-Formulary Medication 1 puff BID PRN IH SHORTNESS OF BREATH; Start 06/04/16 at 10:15; Status UNV Albuterol Sulfate (Ventolin Neb Soln) 2.5 mg RTQID NEB Last administered on 06/09 07:04; Start 06/04/16 at 12:00 Budesonide (Pulmicort) 0.5 mg RTBID NEB Last administered on 06/09/16 07:04; Start 06/04/16 at 20:00 Ondansetron HCl (Zofran) 8 mg PRN Q8HRS PRN IV NAUSEA/VOMITING; Start 06/04/16 at 10:45 Enoxaparin Sodium (Lovenox 40mg Syringe) 40 mg Q12HR SQ ; Start 06/04/16 at 12: 00; Stop 06/04/16 at 12:00; Status DC Enoxaparin Sodium (Lovenox 40mg Syringe) 40 mg DAILY SQ Last administered on 08:38; Start 06/04/16 at 12:00; Stop 06/05/16 at 16:26; Status DC Furosemide (Lasix) 40 mg DAILY PO ; Start 06/05/16 at 12:30; Stop 06/05/16 at 12 :30; Status DC Polyethylene Glycol (miraLAX PACKET) 17 gm DAILY PO Last administered on 08:34; Start 06/05/16 at 13:00 Senna/Docusate Sodium (Senna Plus) 1 tab BID PO Last administered on 06/09/16 08:33; Start 06/05/16 at 13:00 Morphine Sulfate (Ms Contin) 15 mg BID PO Last administered on 06/08/16 09:16 ; Start 06/05/16 at 13:00; Stop 06/08/16 at 09:59; Status DC Tramadol HCl (Ultram) 100 mg PRN Q6HRS PRN PO PAIN Last administered on 08:23; Start 06/05/16 at 12:00; Stop 06/07/16 at 10:04; Status DC Enoxaparin Sodium (Lovenox 40mg Syringe) 40 mg Q12HR SQ Last administered on 08:38; Start 06/05/16 at 21:00 Fentanyl Citrate (Fentanyl 2ml Vial) 50 mcg 1X ONCE IM ; Start 06/08/16 at 22: 45; Stop 06/08/16 at 22:46; Status DC Active Scripts Active Pantoprazole Sodium 40 Mg Tablet.dr 40 Mg PO DAILYAC Colace (Docusate Sodium) 100 Mg Capsule 100 Mg PO BID Atorvastatin Calcium 40 Mg Tablet 40 Mg PO QHS Reported Ketorolac Tromethamine 5 Ml Drops 1 Drop LEFTEYE [id number] Benadryl (Diphenhydramine Hcl) 25 Mg Capsule 2 Cap PO PRN 3-4XDAILY PRN Valium (Diazepam) 10 Mg Tablet 10 Mg PO PRN BID PRN Promethazine-Codeine Syrup (Promethazine Hcl/Codeine) 118 Ml Syrup 5 Ml PO Q4- 6HRS PRN Furosemide 40 Mg Tablet 1 Tab PO DAILY Talwin (Pentazocine Lactate) 30 Mg/1 Ml Ampul 50 Mg PO Q4HRS PRN Advair 500-50 Diskus (Fluticasone/Salmeterol) 1 Each Disk.w.dev 1 Puff IH BID PRN Ventolin Hfa Inhaler (Albuterol Sulfate) 18 Gm Hfa.aer.ad 2 Puff IH PRN Q4-6HRS Proair Hfa Inhaler (Albuterol Sulfate) 8.5 Gm Hfa.aer.ad 1 Puff INH PRN Q6HRS PRN Vitals/I & O Vital Sign - Last 24 Hours 06/08/16 06/08/16 06/08/16 06/08/16 11:00 11:50 15:00 15:01 Temp 97.8 97.6 97.8 97.6 Pulse 86 83 Resp 16 18 B/P 134/77 129/73 Pulse Ox 99 100 98 O2 Delivery Nasal Cannula Nasal Cannula Nasal Cannula Nasal Cannula O2 Flow Rate 2.0 2.0 2.0 2.0 06/08/16 06/08/16 06/08/16 06/08/16 18:46 18:47 19:00 19:25 Temp 98.1 98.1 Pulse 94 Resp 18 B/P 118/56 Pulse Ox 98 98 96 O2 Delivery Nasal Cannula Nasal Cannula Nasal Cannula Nasal Cannula O2 Flow Rate 2.0 2.0 2.0 2.0 06/08/16 06/09/16 06/09/16 06/09/16 23:00 03:00 07:00 07:05 Temp 98.2 98.1 97.9 98.2 98.1 97.9 Pulse 88 90 83 Resp 18 18 16 B/P 126/63 123/69 150/62 Pulse Ox 97 98 94 98 O2 Delivery Nasal Cannula Nasal Cannula Nasal Cannula Nasal Cannula O2 Flow Rate 2.0 2.0 2.0 2.0 Intake and Output 06/08/16 06/08/16 06/09/16 15:00 23:00 07:00 Intake Total 275 ml 1200 ml 120 ml Balance 275 ml 1200 ml 120 ml JARVIS ORTIZ MD Jun 09, 2016 10:03
[2016-06-09] MEDS ORDERED: DOCUSATE SODIUM 283 MG/5 ML ENEMA. PR PRN (10:15)
[2016-06-09 11:00] VITALS: BP 140/73
[2016-06-09] MEDS ORDERED: MAGNESIUM CITRATE 296 ML SOLUTION. PO ONE (11:00)
[2016-06-09] MEDS ORDERED: MORPHINE ER 15 MG TABLET.ER PO SCH (11:00)
--- NOTE | 2016-06-09 11:10 | RAD ---
Indication abdominal pain. Supine films of the abdomen were obtained. No recent plain film imaging of the abdomen is available. The abdominal gas pattern appears unremarkable. There are some degenerative changes in the visualized spine. Degenerative changes are seen involving the hips. There does not appear to be an inordinate amount of stool within the large bowel. No organomegaly or abnormal calculi are seen. IMPRESSION: No acute or significant finding seen on KUB
[2016-06-09] MEDS ORDERED: BISACODYL 5 MG TABLET.DR. PO PRN (11:30)
[2016-06-09 14:54] VITALS: BP 124/64
== END 2016-06-09 15:39 | DRG 552 ==
LOC: 4 NORTH 13:40
PROVIDERS: ADMIT Physical Medicine & Rehabilitation; ATTEND Physical Medicine & Rehabilitation
DX: S13.4XXA Sprain of ligaments of cervical spine, initial encounter (principal); Z68.41 Body mass index [BMI] 40.0-44.9, adult; D86.9 Sarcoidosis, unspecified; S23.3XXA Sprain of ligaments of thoracic spine, initial encounter; M50.30 Other cervical disc degeneration, unspecified cervical region; M51.36 Other intervertebral disc degeneration, lumbar region; E66.01 Morbid (severe) obesity due to excess calories; F41.9 Anxiety disorder, unspecified; G89.29 Other chronic pain; J45.909 Unspecified asthma, uncomplicated; K59.00 Constipation, unspecified; M19.90 Unspecified osteoarthritis, unspecified site; M25.70 Osteophyte, unspecified joint; M47.812 Spondylosis without myelopathy or radiculopathy, cervical region; M47.816 Spondylosis without myelopathy or radiculopathy, lumbar region; R29.6 Repeated falls; Z82.49 Family history of ischemic heart disease and other diseases of the circulatory system; Z88.0 Allergy status to penicillin; Z88.8 Allergy status to other drugs, medicaments and biological substances; Z88.1 Allergy status to other antibiotic agents; Z91.041 Radiographic dye allergy status
CPT/HCPCS: 36415; 71010; 71250; 72050; 72072; 72100; 73030; 74000; 80053; 85027; 94250; 94640; 94760; J1650; J3010; Q0163; 97110; 97116; 97530; 97535

== ENCOUNTER 2017-07-05 10:08 | Emergency (ER) | payer MEDICARE, OTHER | END 2017-07-05 11:52 | disposition home or self-care (01) | LOC: ER 10:08 | DX: Z76.0 Encounter for issue of repeat prescription (principal); D86.9 Sarcoidosis, unspecified; Z91.041 Radiographic dye allergy status; Z88.0 Allergy status to penicillin; Z88.8 Allergy status to other drugs, medicaments and biological substances; Z88.1 Allergy status to other antibiotic agents; Z91.011 Allergy to milk products; Z96.659 Presence of unspecified artificial knee joint | CPT/HCPCS: 99283 ==

== ENCOUNTER → 2020-02-22 | Outpatient (CLI) | payer MEDICARE, OTHER ==
[2017-07-05 10:15] VITALS: BP 141/70
[~2020-02-22] MED LIST changes: +ALBU2.5V8 INH; +BUPIVACAINE MPF 0.5% 10 ML VIAL. INT ART ONE; +DIPH50CA17 PO; +DOCU-109 PO; -DOCU-27 PO; +GUAI118L20 PO; +LIDOCAINE 1% Multi-Dose 20 ML VIAL. ID ONE; +OXYC1TAB22 PO; -PANT40TA5 PO; +PANT40TA77 PO; -PROAIR HFA8.5 GM INH; -PROM118S2 PO; +PROM118S5 PO; +methylPREDNISolone ACETATE 40 MG/ML VIAL. INT ART ONE
--- NOTE | 2020-02-22 17:12 | KCIC ---
Bilateral knees 3 views each INDICATION: Bilateral knee pain. History of total knee replacements TECHNIQUE: AP, oblique and lateral views of the right and left knees were obtained. FINDINGS: Right knee shows a total knee arthroplasty in anatomic alignment with no fracture or aggressive appearing osseous lesions. No periprosthetic lucency is present. The bones are demineralized. The lateral view shows narrowing of the patellofemoral compartment with no joint effusion or evidence of a loose body. There is a well-circumscribed ossific density within the distal aspect of the quadriceps tendon. Soft tissues otherwise are unremarkable. Left knee also demonstrates a total knee arthroplasty in anatomic alignment with small ossific density projecting over the joint space on the lateral view. No significant joint effusion is seen. No periprosthetic lucency is identified. Soft tissues are otherwise unremarkable. IMPRESSION: Bilateral total knee arthroplasties and osteopenia but no fracture, malalignment or aggressive osseous lesions seen. Possible loose body in the left knee joint space. Electronically signed by: Scott Dudley MD (02/22/2020 5:09 PM) [id number]
--- NOTE | 2020-02-22 17:45 | KCIC ---
FLUOROSCOPICALLY GUIDED BILATERAL SHOULDER THERAPEUTIC INJECTIONS 1. INDICATION: The patient is a 79 years old Female who presented with bilateral shoulder pain. 2. CONSENT: The risks, benefits, treatment options, potential complications and personnel to be involved were discussed (including the risks of radiation exposure, instruments to be used, contrast and anesthesia administration) with the patient. All questions were answered and consent was obtained. The patient indicated willingness to proceed. 3. GENERAL: a) Medication Reconciliation: The patient's medications and allergies were reviewed in the electronic medical record and reconciled to the proposed procedure/treatment. b) Positioning: The patient was placed Supine on the fluoroscopy table. c) The left followed by the right shoulder was then sterilely prepped and draped. d) Time Out: A time out was performed immediately prior to procedure start with the nursing, anesthesia and interventional team, correctly identifying the patient name, date of , procedure, anatomy (including marking of site and side), patient position, procedure consent form, relevant diagnostic and radiology test results, antibiotic administration, safety precautions, and procedure-specific equipment needs. Procedure Start Time / Timeout Time: 14:04 e) Anesthesia Type: Local anesthesia: 2 mL 1% Lidocaine on the left, 2 mL 1% Lidocaine on the right 4. PROCEDURE: a) Procedure Details: A 20g spinal needle was inserted into the left shoulder joint. A small amount of air was injected to confirm intra-articular placement of needle. Air was observed to flow into the intra-articular space of the joint without significant resistance. 6 mL of injectate was administered into the left glenohumeral joint . The needle was removed. Images were stored to the permanent digital archive documenting needle position. Attention was then turned to the right shoulder where the same process was repeated with a 20-gauge spinal needle utilizing a small amount of air to confirm intra-articular needle placement and 6 mL of injectate was administered into the right glenohumeral joint. The needle was removed. Images were stored to the permanent digital archive documenting needle position. b) Injectate Contents: LEFT: 2 mL Methylprednisolone (Depo Medrol) 40mg/ml 4 mL Bupivacaine (Marcaine, Sensorcaine) RIGHT: 2 mL Methylprednisolone (Depo Medrol) 40mg/ml 4 mL Bupivacaine (Marcaine, Sensorcaine) c) Estimated Blood Loss: 0 mL RADIATION DOSE: Fluoroscopic Radiation Summary: Fluoro time: 00:13 (min:sec) on the left, 00:13 (min:sec) on the right POST PROCEDURE: a) Hemostasis: Hemostasis was achieved using light manual compression. b) Procedure End Time: 14:25 c) Conclusion: The patient was discharged from the radiology department in stable condition. COMPLICATIONS: a) Significant Patient Complication: None If other, explain: b) Complications during the procedure: None If other, explain: 5. RESULTS: Medication was injected into the joints. 6. IMPRESSION: SUCCESSFUL FLUOROSCOPICALLY GUIDED THERAPEUTIC INJECTION OF THE BILATERAL SHOULDERS DESCRIBED ABOVE. Electronically signed by: Dano Miguel DO (02/22/2020 5:42 PM) [id number]
== END | disposition home or self-care (01) ==
LOC: KCIC 13:03
PROVIDERS: ATTEND Physical Medicine & Rehabilitation
DX: M19.012 Primary osteoarthritis, left shoulder (principal); M19.011 Primary osteoarthritis, right shoulder; M25.562 Pain in left knee; M25.561 Pain in right knee; M85.88 Other specified disorders of bone density and structure, other site; F41.9 Anxiety disorder, unspecified; F32.9 Major depressive disorder, single episode, unspecified; Z96.653 Presence of artificial knee joint, bilateral; Z98.51 Tubal ligation status; Z98.890 Other specified postprocedural states; Z79.899 Other long term (current) drug therapy; Z88.0 Allergy status to penicillin; Z88.1 Allergy status to other antibiotic agents; Z91.041 Radiographic dye allergy status; Z91.011 Allergy to milk products; Z88.8 Allergy status to other drugs, medicaments and biological substances
CPT/HCPCS: 20610; 73562; 77002; J1030; J3490

== ENCOUNTER → 2020-05-08 | Outpatient (CLI) | payer MEDICARE, OTHER ==
[2017-07-05 10:15] VITALS: BP 141/70
--- NOTE | 2020-05-08 15:47 | KCIC ---
ADDENDUM #1 Addendum: 1 fluoroscopic image saved on the right and 1 fluoroscopic image saved on the left. Electronically signed by: Kristopher Mcintyre DO (06/02/2020 2:03 PM) [id number] ORIGINAL REPORT IR ARTHROCENTESIS ASP/INJ BILAT History: Pain Technique: Patient was informed of the risks to include pain, infection, bleeding, allergic reaction. All questions were answered. Patient signed a written consent form for bilateral injection for pain therapy. Patient was placed in supine position on the fluoroscopy table. The external skin site overlying righ t was prepped and draped in the usual sterile fashion. Betadine was utilized for cleansing solution. 1% lidocaine was utilized for local anesthesia to the depth of the bone. 22-gauge spinal needle was a dvanced under fluoroscopy to depth of the bone. Air was injected to confirm intra-articular location. Mixture of 4 cc bupivacaine and 80 mg Depo-Medrol were injected during fluoroscopic visualization. N eedle was removed. There were no immediate complications. Bandage was applied. Similar technique was performed on the left shoulder with injection of a mixture of 4 cc bupivacaine and 80 mg Depo-Medrol were injected during fluoroscopic visualization. There is no complications. Ban dage was applied. Fluoroscopy time 47 seconds on the right and 41 seconds volume left. Impression: 1. Successful bilateral steroid injection. Electronically signed by: Kristopher Mcintyre DO (05/08/2020 3:45 PM) [id number]
== END | disposition home or self-care (01) ==
LOC: KCIC 10:07
PROVIDERS: ATTEND Physical Medicine & Rehabilitation
DX: M25.512 Pain in left shoulder (principal); M25.511 Pain in right shoulder; M19.90 Unspecified osteoarthritis, unspecified site; F32.9 Major depressive disorder, single episode, unspecified; F41.9 Anxiety disorder, unspecified; Z98.51 Tubal ligation status; Z98.890 Other specified postprocedural states; Z79.899 Other long term (current) drug therapy; Z88.0 Allergy status to penicillin; Z88.1 Allergy status to other antibiotic agents; Z88.8 Allergy status to other drugs, medicaments and biological substances
CPT/HCPCS: 20610; 77002; J1030; J3490

== ENCOUNTER 2020-05-30 08:52 | Emergency (ER) | payer MEDICARE, OTHER ==
[~2020-05-30] VITALS: Ht 160 cm; Wt 250.0 kg
[~2020-05-30 08:52] MED LIST changes: -BUPIVACAINE MPF 0.5% 10 ML VIAL. INT ART ONE; -LIDOCAINE 1% Multi-Dose 20 ML VIAL. ID ONE; -methylPREDNISolone ACETATE 40 MG/ML VIAL. INT ART ONE
--- NOTE | 2020-05-30 09:35 | RAD ---
XR CHEST 1V 05/30/2020 9:19 AM INDICATION: Left-sided weakness COMPARISON: June 07, 2016 TECHNIQUE: Portable frontal view of the chest is provided. FINDINGS: The cardiomediastinal silhouette is within normal limits. Stable bilateral hilar prominence, right gr eater than left. This may represent vascular prominence versus lymphadenopathy. Mild chronic intersti tial changes are noted. There are no significant pleural effusions. There is no pulmonary vascular congestion. No pneumothora x. No suspicious osseous abnormality. IMPRESSION: Chronic interstitial changes with hilar prominence, right greater than left. No new airspace consolid ation. Electronically signed by: Kristen Tomlinson MD (05/30/2020 9:33 AM) [id number]
--- NOTE | 2020-05-30 09:37 | RAD ---
EXAM: CT Head without IV contrast INDICATION: Reason: left sided weakness / Spl. Instructions: / History: TECHNIQUE: Multi-detector row CT images were obtained of the head without the use of IV contrast. All CT scans performed at this facility utilize dose optimization techniques as appropriate to the exam, including the following: Automated exposure control and adjustment of the mA and/or KV according to patient size (this includes techniques or standardized protocols for targeted exams where dose is ind ication/reason for exam). COMPARISON: None FINDINGS: BRAIN PARENCHYMA: No evidence of acute intraparenchymal hemorrhage or infarct. No abnormal parenchyma l density or mass. VENTRICLES & EXTRA-AXIAL SPACES: Ventricles are within normal limits. Basilar cisterns are patent. N o pathologic extra-axial fluid collection or mass. ORBITS: Orbital contents are unremarkable. SINUSES: Visualized paranasal sinuses and mastoid air cells are clear. OSSEOUS & SOFT TISSUES: Calvarium and skull base are intact. IMPRESSION: No acute intracranial pathology. FOR INTERNAL CODING PURPOSES Critical result: Findings discussed with Dr. Elier Barrow at 05/30/2020 9:35 AM. RESULT CODE: (C) Electronically signed by: Scott Dudley MD (05/30/2020 9:35 AM) [id number]
--- NOTE | 2020-05-30 09:38 | PHYS DOC ---
Past Medical History Past Medical History: Anemia, Other Additional Past Medical Histor: sarcoidosis Past Surgical History: Knee Replacement Additional Past Surgical Histo: unknown Smoking Status: Never Smoker Alcohol Use: None Drug Use: None General Adult EDM: Chief Complaint: Left sided weakness HPI: HPI: 79-year-old female presenting the emergency department today with left-sided weakness. She was found at her home today on the ground and noted to have left- sided weakness with facial drooping. She was last known well at 4 PM on May 29. This is when she was last seen is normal. She has twitching on her left upper extremity and left face but is able to answer questions including being able to respond that the year is 2020. She has slurred speech. She is not on any blood thinners. I spoke with the patient's family member Pascual Liriano to obtain more information. She had talked to the pt at 7pm and reports that the patient seemed like she had been on her medication with abnormal speech. She reports that this is intermittantly baseline for the patient as she is on strong pain medications. When she takes these medications she typically has this abnormal speech pattern. It is abnormal for the patient to have the weakness on the left side of her upper and lower extremity. Review of systems negative for chest pain shortness of breath abdominal pain vomiting fevers chills. All other review of systems negative. ED course: 79-year-old female presenting with strokelike symptoms. Patient is outside of TPA window. Last known well greater than 5 hours. Last known well was 4 PM. I do not feel comfortable with last known well at 7 PM because the patient speech abnormalities. In either case, last known well is greater than 5 hours. Unfortunately, because the patient is allergic to iodine contrast we are unable to do an ct angiogram of the head and neck. I spoke with our stroke neurologist Dr. Bhandari and consulted on the case. We spoke around 9:40 AM. I then called [facility] per his direction and explained the case to them. We will transfer the patient to for further treatment and care for concern for possible large vessel occlusion. Patient had twitching of the left upper extremity/shoulder and left face but was able to answer questions. Unfortunately we lost the IV in her hand that we had obtained. Given the patient's clinical presentation I feel it is in the better interest of the patient to get the patient to a higher level stroke center. I spoke with the patient's daughter multiple times, CAMEALIA and explained the patient's condition. We discussed the risks and benefits of TPA and the exclusion criteria in this case. We attempted doing an EKG on the patient however there is too much artifact to be able to interpret this EKG. Patient was then transferred to for further treatment and evaluation. Accepting doctor is Dr. Rodriguez. Heart Score: Risk Factors: Risk Factors: DM, Current or recent (<one month) smoker, HTN, HLP, family history of CAD, obesity. Risk Scores: Score 0 - 3: 2.5% MACE over next 6 weeks - Discharge Home Score 4 - 6: 20.3% MACE over next 6 weeks - Admit for Clinical Observation Score 7 - 10: 72.7% MACE over next 6 weeks - Early Invasive Strategies Allergies: Allergies: Allergies Coded Allergies Type Severity Reaction Last Updated Verified Iodinated Contrast Media Allergy Severe 06/04/16 Yes Penicillins Allergy Severe swelling 06/16/15 Yes prednisone Allergy Severe swelling 06/16/15 Yes levofloxacin Allergy Intermediate 06/16/15 Yes Milk Containing Products Adverse Reaction Intermediate 06/17/15 Yes Physical Exam: PE: Constitutional: Well developed. HENT: Normocephalic, atraumatic, bilateral external ears normal, oropharynx moist, no oral exudates, nose normal. [] Eyes: PERRLA, EOMI, conjunctiva normal, no discharge. [] Neck: Normal range of motion, no tenderness, supple, no stridor. [] Cardiovascular:Heart rate regular rhythm, no murmur [] Lungs & Thorax: Bilateral breath sounds clear to auscultation [] Abdomen: Bowel sounds normal, soft, no tenderness, no masses, no pulsatile masses. [] Skin: Warm, dry, no erythema, no rash. [] Back: No tenderness, no CVA tenderness. [] Extremities: No tenderness, no cyanosis, no clubbing, ROM intact, no edema. [] Neurologic: Mental status: Opens eyes spontaneously, eyes deviate to the right spontaneously. Patient has facial drooping on the left side with intermittent twitching of the facial muscles on the left. Cranial nerves: Extraocular movements: Patient is able to overcome eye deviation and look to the left., Left facial droop., uvula elevation nl, shoulder shrug intact bilaterally, tongue protrusion normal Garbled speech. Sensation: Decreased in the left upper and lower extremity. Normal in the right upper and lower extremity. Strength: Flaccid on the left upper extremity and left lower extremity. Right upper and lower extremity are 4 out of 5 strength with drifting. Psychologic: Affect normal, judgement normal, mood normal. [] Current Patient Data: Labs: Laboratory Tests Test 05/30/20 09:09 Glucose (Fingerstick) 132 mg/dL (70-99) H EKG: EKG: [] Radiology/Procedures: Radiology/Procedures: [] Course & Med Decision Making: Course & Med Decision Making Pertinent Labs and Imaging studies reviewed. (See chart for details) [] Dragon Disclaimer: Dragon Disclaimer: This electronic medical record was generated, in whole or in part, using a voice recognition dictation system. Departure Departure Impression: Primary Impression: Stroke Disposition: 02 DC/TRF OTHER SHORT TERM HOS ([facility]) Condition: GUARDED Referrals: FELICIANO SZYMANSKI (PCP) NIHSS Stroke Scale NIH Stroke Scale: NIH Stroke Scale Response (Comments) Value Level of Consciousness: 0 Alert/Responsive 0 LOC Questions: 1 Answers one correctly 1 LOC Commands: 2 Perform neither task 2 Best Gaze: 1 Partial gaze palsy 1 Visual: 0 No visual loss 0 Facial Palsy: 2 Partial paralysis 2 Motor - Left Arm 4 No movement 4 Motor - Right Arm 3 Limb falls 3 Motor - Left Leg 4 No movement 4 Motor: Right Leg 3 Limb falls 3 Limb Ataxia: 0 Absent 0 Sensory: 1 Mid to moderate loss 1 Best Language: 2 Severe aphasia 2 Dysathria: 2 Severe 2 Extinction and Inattention: 1 One sensory modality 1 Total 26 Critical Care Time Critical care time spent was 60 minutes exclusive of procedures. Time was spent evaluating the patient, ordering the administration of medications, reevaluating the patient, discussing with the admitting provider and documenting. JESUS ROBLES MD May 30, 2020 09:38
[2020-05-30 09:49] VITALS: BP 169/90
--- NOTE | 2020-05-30 10:56 | RAD ---
XR HIP (WITH OR WITHOUT PELVIS) 1 VIEW 05/30/2020 9:45 AM INDICATION: Fall, hip pain COMPARISON: None available. TECHNIQUE: AP view the pelvis and 2 views of the right and 2 views left hip are provided. FINDINGS/ IMPRESSION: There is no acute fracture or dislocation. 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 Bone mineralization is within nor mal limits. Regional soft tissues are within normal limits. There is no soft tissue gas or osseous er osion. No radiopaque foreign body. With symptoms persist or there is persistent clinical concern, fur ther evaluation with cross-sectional imaging could be of benefit. Electronically signed by: Kristen Tomlinson MD (05/30/2020 10:54 AM) [id number]
--- NOTE | 2020-05-30 19:23 | EKG ---
[facility] [address] [place] [address] Test Date: 2020-05-30 Test Time: 09:58:31 Pat Name: KUMAR CHIRINOS Department: Room: Gender: F Machine [employer] App[employer]ice: : 1940 Requested By: JESUS ROBLES Order Number: [id number] Reading MD: Measurements Intervals [place] Rate: 0 P: DE: QRS: 0 QRSD: 0 T: 0 QT: 0 QTc: 0 Interpretive Statements No previous ECG available for comparison
== END 2020-05-30 10:15 | disposition short-term general hospital (02) ==
LOC: ER 08:52
DX: I63.9 Cerebral infarction, unspecified (principal); Z88.0 Allergy status to penicillin; Z88.1 Allergy status to other antibiotic agents; Z88.5 Allergy status to narcotic agent; Z91.041 Radiographic dye allergy status; Z91.011 Allergy to milk products
CPT/HCPCS: 70450; 71045; 73521; 82962; 87426; 93005; 99291; C9803; U0003

== ENCOUNTER → 2020-08-01 | Outpatient (CLI) | payer MEDICARE, OTHER ==
[~2020-08-01] MED LIST changes: +BUPIVACAINE MPF 0.5% 10 ML VIAL. INT ART ONE; +LIDOCAINE 1% Multi-Dose 20 ML VIAL. ID ONE; +methylPREDNISolone ACETATE 40 MG/ML VIAL. INT ART ONE
--- NOTE | 2020-08-01 18:17 | KCIC ---
FLUOROSCOPICALLY GUIDED BILATERAL SHOULDER THERAPEUTIC INJECTIONS 1. INDICATION: The patient is a 79 years old Female who presented with bilateral shoulder pain. 2. CONSENT: The risks, benefits, treatment options, potential complications and personnel to be invo lved were discussed (including the risks of radiation exposure, instruments to be used, contrast and anesthesia administration) with the patient. All questions were answered and consent was obtained. Th e patient indicated willingness to proceed. 3. GENERAL: a) Medication Reconciliation: The patient's medications and allergies were reviewed in the [facility] medical record and reconciled to the proposed procedure/treatment. Pre-procedure Sign-in: Safety Checklist Performed Yes b) Positioning: The patient was placed Supine on the fluoroscopy table. c) The right right shoulder followed by the left shoulder were sterilely prepped and draped. d) Time Out: A time out was performed immediately prior to procedure start with the nursing, anesthes ia and interventional team, correctly identifying the patient name, date of , procedure, anatomy (including marking of site and side), patient position, procedure consent form, relevant diagnostic and radiology test results, antibiotic administration, safety precautions, and procedure-specific equ ipment needs. Procedure Start Time / Timeout Time: 12:49 e) Anesthesia Type: Local anesthesia: 3 mL 1% Lidocaine per side 4. PROCEDURE: a) Procedure Details: A 20g spinal needle was inserted into the right shoulder joint. A small amount of air was injected to confirm intra-articular placement of needle. Air was observed to flow into th e intra-articular space of the joint without significant resistance. 5 mL of injectate was administer ed into the right shoulder joint. The needle was removed. Attention was then turned to the left shoul estee reveal same process was repeated. A 20g spinal needle was inserted into the left shoulder joint. A small amount of air was injected to confirm intra-articular placement of needle. Air was observed t o flow into the intra-articular space of the joint without significant resistance. 5 mL of injectate was administered into the left shoulder joint. The needle was removed. Images were stored to the [facility] [employer] digital archive documenting needle position. b) Injectate Contents (per side): 1 mL Methylprednisolone (Depo Medrol) 40mg/ml 4 mL 0.5% Bupivacaine (Marcaine,Sensorcaine) c) Estimated Blood Loss: 0 mL RADIATION DOSE: Fluoroscopic Radiation Summary: (right/left) Fluoroscopy Time: 0:20 min:sec (right) / 0:19 min:sec (left) Number of Images: 2 (right) / 2 (left) POST PROCEDURE: a) Hemostasis: Hemostasis was achieved using light manual compression. b) Sign-out: Communication Performed Yes c) Procedure End Time: 13:12 d) Conclusion: The patient was discharged from the radiology department in stable condition. COMPLICATIONS: a) Significant Patient Complication: None If other, explain: b) Complications during the procedure: None If other, explain: 5. RESULTS: Medication was injected into the joints. 6. IMPRESSION: SUCCESSFUL FLUOROSCOPICALLY GUIDED THERAPEUTIC INJECTION OF THE BILATERAL SHOULDERS DE SCRIBED ABOVE. Electronically signed by: Dano Miguel DO (08/01/2020 6:15 PM) [id number]
== END | disposition home or self-care (01) ==
LOC: KCIC 12:20
PROVIDERS: ATTEND Physical Medicine & Rehabilitation
DX: M25.512 Pain in left shoulder (principal); M25.511 Pain in right shoulder; M19.90 Unspecified osteoarthritis, unspecified site; F41.9 Anxiety disorder, unspecified; F32.9 Major depressive disorder, single episode, unspecified; Z98.51 Tubal ligation status; Z98.890 Other specified postprocedural states; Z79.899 Other long term (current) drug therapy; Z88.0 Allergy status to penicillin; Z88.1 Allergy status to other antibiotic agents; Z91.041 Radiographic dye allergy status; Z88.8 Allergy status to other drugs, medicaments and biological substances
CPT/HCPCS: 20610; 77002; J1030; J3490

== ENCOUNTER → 2020-09-22 | Outpatient (CLI) | payer OTHER ==
--- NOTE | 2020-09-22 17:11 | KCIC ---
FLUOROSCOPICALLY GUIDED BILATERAL SHOULDER THERAPEUTIC INJECTIONS 1. INDICATION: The patient is a 79 years old Female who presented with bilateral shoulder pain. 2. CONSENT: The risks, benefits, treatment options, potential complications and personnel to be invo lved were discussed (including the risks of radiation exposure, instruments to be used, contrast and anesthesia administration) with the patient. All questions were answered and consent was obtained. Th e patient indicated willingness to proceed. 3. GENERAL: a) Medication Reconciliation: The patient's medications and allergies were reviewed in the [facility] medical record and reconciled to the proposed procedure/treatment. b) Positioning: The patient was placed Supine on the fluoroscopy table. c) The right then left shoulders were sterilely prepped and draped. d) Time Out: A time out was performed immediately prior to procedure start with the nursing, anesthes ia and interventional team, correctly identifying the patient name, date of , procedure, anatomy (including marking of site and side), patient position, procedure consent form, relevant diagnostic and radiology test results, antibiotic administration, safety precautions, and procedure-specific equ ipment needs. Procedure Start Time / Timeout Time: 11:38 e) Anesthesia Type: Local anesthesia: 4 mL 1% Lidocaine (per shoulder) 4. PROCEDURE: a) Procedure Details: A 20g spinal needle was inserted into the right shoulder joint. A small amount of air was injected to confirm intra-articular placement of needle. Air was observed to flow into th e intra-articular space of the joint without significant resistance. 5 mL of injectate was administer ed into the joint. The needle was removed. Attention was then turned to the left shoulder. Utilizing the same sterile technique, a 20g spinal needle was inserted into the left shoulder joint. A small am ount of air was injected to confirm intra-articular placement of needle. Air was observed to flow int o the intra-articular space of the joint without significant resistance. 5 mL of injectate was admini stered into the joint. The needle was removed. Images were stored to the permanent digital archive do cumenting needle position. b) Injectate Contents (per shoulder): 1 mL Methylprednisolone (Depo Medrol) 40mg/ml 4 mL 0.25% Bupivacaine (Marcaine,Sensorcaine) c) Estimated Blood Loss: 0 mL RADIATION DOSE: Fluoroscopic Radiation Summary: Fluoroscopy Time: 0:44 min:sec Number of Images: 4 POST PROCEDURE: a) Hemostasis: Hemostasis was achieved using light manual compression. b) Sign-out: Communication Performed Yes c) Procedure End Time: 11:58 d) Conclusion: The patient was discharged from the radiology department in stable condition. COMPLICATIONS: a) Significant Patient Complication: None If other, explain: b) Complications during the procedure: None If other, explain: 5. RESULTS: Medication was injected into the joints. 6. IMPRESSION: SUCCESSFUL FLUOROSCOPICALLY GUIDED THERAPEUTIC INJECTION OF THE BILATERAL SHOULDERS DE SCRIBED ABOVE. Electronically signed by: Dano Miguel DO (09/22/2020 5:08 PM) [id number]
== END | disposition home or self-care (01) ==
LOC: KCIC 09:57
PROVIDERS: ATTEND Physical Medicine & Rehabilitation
DX: M25.512 Pain in left shoulder (principal); M25.511 Pain in right shoulder; F41.9 Anxiety disorder, unspecified; F32.9 Major depressive disorder, single episode, unspecified; M19.90 Unspecified osteoarthritis, unspecified site; Z98.51 Tubal ligation status; Z98.890 Other specified postprocedural states; Z79.899 Other long term (current) drug therapy; Z88.0 Allergy status to penicillin; Z88.1 Allergy status to other antibiotic agents; Z91.041 Radiographic dye allergy status; Z88.8 Allergy status to other drugs, medicaments and biological substances
CPT/HCPCS: 20610; 77002; J1030; J3490

== ENCOUNTER → 2020-12-10 | Outpatient (CLI) | payer OTHER ==
[~2020-12-10] MED LIST changes: +BUPIVACAINE MPF 0.25% 10 ML VIAL. IJ ONE; -BUPIVACAINE MPF 0.5% 10 ML VIAL. INT ART ONE; -LIDOCAINE 1% Multi-Dose 20 ML VIAL. ID ONE; +LIDOCAINE 1% Multi-Dose 20 ML VIAL. INJ ONE; -methylPREDNISolone ACETATE 40 MG/ML VIAL. INT ART ONE; +methylPREDNISolone ACETATE 80 MG/ML VIAL. ONE
--- NOTE | 2020-12-10 16:15 | RAD ---
EXAM: Bilateral shoulder joint injection WITH Fluoroscopic guidance DATE: 12/10/2020 12:58 PM CLINICAL HISTORY: Reason: bilateral shoulder pain from arthritis/0.3 minutes fluoro time/ 4 images / Spl. Instructions: / History: COMPARISON: None pertinent TECHNIQUE: The patient was informed of the indications and alternatives for this procedure as well as risks and benefits. No immediate contraindication identified. The patient provided informed, written consent. Laterality was confirmed by the entire team following a time out. Following initial right shoulder localization, a suitable area was sterilely prepped and draped. Loca l anesthesia was administered with 1% xylocaine. With intermittent fluoroscopic observation, a 22-gau ge spinal needle was advanced into the right shoulder sheath/capsule with confirmation of intra-syn ovial position with infusion of less than 3 cc room air. Subsequent infusion solution containing 40 m g Depo-Medrol, 3 mm lidocaine 1 percent and 3 mL Marcaine 0.25 percent. Hemostasis with local pressur e. Local clinical exam negative for immediate complication. Following initial left shoulder localization, a suitable area was sterilely prepped and draped. Local anesthesia was administered with 1% xylocaine. With intermittent fluoroscopic observation, a 22-gaug e spinal needle was advanced into the left shoulder sheath/capsule with confirmation of intra-synov ial position with infusion of less than 3 cc room air. Subsequent infusion solution containing 40 mg Depo-Medrol, 3 mm lidocaine 1 percent and 3 mL Marcaine 0.25 percent.. Hemostasis with local pressure . Local clinical exam negative for immediate complication. Patient informed re local potential signs or symptoms that may indicate need to return to ER/Ordering physician for further evaluation. Patient informed re precautionary measures after intra-synovial in jection of anesthetic. Patient informed re potential for short term increase local symptomatology due to steroid flare. Patient expressed understanding. Performing Physicians: Dr. Kaia López Blood Loss: 0 cc Total Fluoroscopy time: 0.3 minutes Total spot images taken: 0 Total last image hold images saved: 4 IMPRESSION: Successful intra-synovial injection of the bilateral shoulder with steroid and anesthetic per clinica l request. Electronically signed by: Bubba López MD (12/10/2020 4:13 PM) [id number] CUSTOM FIELD 1
== END | disposition home or self-care (01) ==
LOC: RAD 13:00
PROVIDERS: ATTEND Physical Medicine & Rehabilitation
DX: M19.012 Primary osteoarthritis, left shoulder (principal); M19.011 Primary osteoarthritis, right shoulder; M25.512 Pain in left shoulder; M25.511 Pain in right shoulder; F41.9 Anxiety disorder, unspecified; F32.9 Major depressive disorder, single episode, unspecified; Z98.51 Tubal ligation status; Z98.890 Other specified postprocedural states; Z79.899 Other long term (current) drug therapy; Z88.0 Allergy status to penicillin; Z88.1 Allergy status to other antibiotic agents; Z91.041 Radiographic dye allergy status; Z88.8 Allergy status to other drugs, medicaments and biological substances
CPT/HCPCS: 20610; 77002; J3490

== ENCOUNTER → 2021-02-20 | Outpatient (CLI) | payer OTHER ==
[~2021-02-20] MED LIST changes: -BUPIVACAINE MPF 0.25% 10 ML VIAL. IJ ONE; +BUPIVACAINE MPF 0.5% 10 ML VIAL. INT ART ONE; -DIPH50CA PO; +DIPH50CA16 PO; +LIDOCAINE 1% Multi-Dose 20 ML VIAL. ID ONE; -LIDOCAINE 1% Multi-Dose 20 ML VIAL. INJ ONE; +methylPREDNISolone ACETATE 40 MG/ML VIAL. INT ART ONE; -methylPREDNISolone ACETATE 80 MG/ML VIAL. ONE
--- NOTE | 2021-02-20 16:28 | KCIC ---
Exam Date: 02/20/2021 2:05 PM IR ARTHROCENTESIS ASP/INJ BILAT Indication: Reason: Bilateral shoulder pain, / Spl. Instructions: 40mg DepoMedrol,3mL Bupivicaine,2ml Lidocaine,per shldr. 11sec fl.,1 image / History: . RIGHT SHOULDER FLUOROSCOPIC GUIDED NEEDLE PLACEMENT AND THERAPEUTIC INJECTION A timeout was performed to ensure that the patient's name and procedure matched our information. Afte r the risks, benefits, personnel, and alternatives to the procedure were discussed with the patient, the patient elected to proceed and signed the consent form. Under fluoroscopic evaluation, a suitable target was selected and the overlying skin was marked. The patient was prepped and draped in the usu al sterile fashion. Local anesthesia with 7.0 cc of lidocaine was given. Under fluoroscopic guidance, a 20 gauge spinal needle was inserted through the anesthetized track into the right shoulder joint. Intra-articular location was confirmed by a test injection of air. The joint was then injected with 6 cc of a solution containing 3 cc of 0.5% ropivacaine and 1 cc of Depo-Medrol (40 mg/cc) and 2 cc of 1% lidocaine. The patient tolerated the procedure very well without any immediate adverse consequence. LEFT SHOULDER FLUOROSCOPIC GUIDED NEEDLE PLACEMENT AND THERAPEUTIC INJECTION A timeout was performed to ensure that the patient's name and procedure matched our information. Afte r the risks, benefits, personnel, and alternatives to the procedure were discussed with the patient, the patient elected to proceed and signed the consent form. Under fluoroscopic evaluation, a suitable target was selected and the overlying skin was marked. The patient was prepped and draped in the usu al sterile fashion. Local anesthesia with 7.0 cc of lidocaine was given. Under fluoroscopic guidance, a 20 gauge spinal needle was inserted through the anesthetized track into the left shoulder joint. I ntra-articular location was confirmed by a test injection of air. The joint was then injected with 6 cc of a solution containing 3 cc of 0.5% ropivacaine and 1 cc of Depo-Medrol (40 mg/cc) and 2 cc of 1 % lidocaine. The patient tolerated the procedure very well without any immediate adverse consequence. IMPRESSION: 1. Successful fluoroscopic guided needle placement and therapeutic injection of the right shoulder john int with ropivacaine and Depo-Medrol. 2. Successful fluoroscopic guided needle placement and therapeutic injection of the left shoulder marlen nt with ropivacaine and Depo-Medrol. Total fluoroscopy time: 11 seconds Fluoroscopic images: 0 Electronically signed by: Nick Johnson MD (02/20/2021 4:26 PM) [id number]
== END | disposition home or self-care (01) ==
LOC: KCIC 12:56
PROVIDERS: ATTEND Physical Medicine & Rehabilitation
DX: M25.512 Pain in left shoulder (principal); M25.511 Pain in right shoulder; M19.90 Unspecified osteoarthritis, unspecified site; F41.9 Anxiety disorder, unspecified; F32.9 Major depressive disorder, single episode, unspecified; Z98.51 Tubal ligation status; Z98.890 Other specified postprocedural states; Z79.899 Other long term (current) drug therapy; Z88.0 Allergy status to penicillin; Z88.1 Allergy status to other antibiotic agents; Z91.041 Radiographic dye allergy status; Z88.8 Allergy status to other drugs, medicaments and biological substances
CPT/HCPCS: 20610; 77002; J1030; J3490

== ENCOUNTER → 2021-02-20 | Outpatient (CLI) | payer OTHER ==
[~2021-02-20] MED LIST changes: -BUPIVACAINE MPF 0.5% 10 ML VIAL. INT ART ONE; -LIDOCAINE 1% Multi-Dose 20 ML VIAL. ID ONE; -methylPREDNISolone ACETATE 40 MG/ML VIAL. INT ART ONE
--- NOTE | 2021-02-20 14:24 | KCIC ---
History: Routine digital screening mammography PROCEDURE: [Routine CC and MLO views of both breasts are obtained.] The images were also evaluated with computer-aided detection and the CAD results were analyzed. Previous: None available. FINDINGS: The study limited due to positioning. There are scattered fibroglandular densities (density level B).There are no suspicious masses, suspic ious microcalcifications or areas of architectural distortion. Scattered benign-appearing calcificati ons in both breasts with calcified nodules in the left breast. There is a small nodule in the upper o uter left breast, posterior depth containing punctate calcifications. No associated architectural dis tortion is noted. IMPRESSION: Nodule containing punctate calcification in the left upper outer breast for which spot compression CC and MLO view and left breast ultrasound may be obtained. BI-RADS Category 0: Incomplete: Need additional imaging evaluation. "Our facility is accredited by the [employer] Mammography Program." A mammogram does not have 100% sensitivity and therefore a negative imaging study should not delay fu rther work up of a suspicious abnormality. "Our facility is accredited by the [employer] Mammography Program." Electronically signed by: Maria Luz Zhang MD (02/20/2021 2:22 PM) [id number]
== END ==
LOC: KCIC MAMMO 12:48
PROVIDERS: ATTEND Surgery
DX: Z12.31 Encounter for screening mammogram for malignant neoplasm of breast (principal)
CPT/HCPCS: 77067

== ENCOUNTER → 2021-07-28 | Outpatient (CLI) | payer OTHER ==
[~2021-07-28] MED LIST changes: +BUPIVACAINE MPF 0.5% 10 ML VIAL. INT ART ONE; +LIDOCAINE 1% Multi-Dose 20 ML VIAL. ID ONE; +TRIAMCINOLONE PRES.FREE 40 MG/ML VIAL. INT ART ONE
--- NOTE | 2021-07-28 17:09 | KCIC ---
EXAM: shoulder joint injection WITH Fluoroscopic guidance DATE: 07/28/2021 12:45 PM CLINICAL HISTORY: Reason: Chronic bilateral shoulder pain. Arthritis. COMPARISON: 12/10/2020, 02/20/2021 TECHNIQUE: The patient was informed of the indications and alternatives for this procedure as well as risks and benefits. No immediate contraindication identified. The patient provided informed, written consent. Laterality was confirmed by the entire team following a time out. Following initial right shoulder joint localization, a suitable area was sterilely prepped and draped . Local anesthesia was administered with 1% xylocaine. With intermittent fluoroscopic observation, a 22-gauge spinal needle was advanced into the shoulder joint sheath/capsule with confirmation of intra -synovial position with infusion of less than 3 cc room air. Subsequent infusion 40 mg Kenalog, 4 mL lidocaine 1 percent and 4 mL Marcaine 0.25 percent.. Hemostasis with local pressure. Local clinical e xam negative for immediate complication. Following subsequent left shoulder joint localization, a suitable area was sterilely prepped and drap ed. Local anesthesia was administered with 1% xylocaine. With intermittent fluoroscopic observation, a 22-gauge spinal needle was advanced into the shoulder joint sheath/capsule with confirmation of int ra-synovial position with infusion of less than 3 cc room air. Subsequent infusion 40 mg Kenalog, 4 m L lidocaine 1 percent and 4 mL Marcaine 0.25 percent.. Hemostasis with local pressure. Local clinical exam negative for immediate complication. Patient informed re local potential signs or symptoms that may indicate need to return to ER/Ordering physician for further evaluation. Patient informed re precautionary measures after intra-synovial in jection of anesthetic. Patient informed re potential for short term increase local symptomatology due to steroid flare. Patient expressed understanding. Performing Physicians: Dr. Kaia López Blood Loss: 0 cc Total Fluoroscopy time: 19 seconds Total images saved: 2 IMPRESSION: Successful intra-synovial injection bilateral shoulder joint with steroid and anesthetic per clinical request. Electronically signed by: Bubba López MD (07/28/2021 5:06 PM) [id number]
== END | disposition home or self-care (01) ==
LOC: KCIC 12:24
PROVIDERS: ATTEND Physical Medicine & Rehabilitation
DX: M25.512 Pain in left shoulder (principal); M25.511 Pain in right shoulder; M19.011 Primary osteoarthritis, right shoulder; M19.012 Primary osteoarthritis, left shoulder; F41.9 Anxiety disorder, unspecified; F32.9 Major depressive disorder, single episode, unspecified; Z98.51 Tubal ligation status; Z98.890 Other specified postprocedural states; Z79.899 Other long term (current) drug therapy; Z88.0 Allergy status to penicillin; Z91.041 Radiographic dye allergy status; Z88.8 Allergy status to other drugs, medicaments and biological substances
CPT/HCPCS: 20610; 77002; J3301; J3490